=== PATIENT | male | born 1935 | race Caucasian/White ===

== ENCOUNTER 2016-09-01 | Outpatient (CLI) | payer MEDICARE | END 2016-09-01 18:46 | disposition EMS.NT ==

== ENCOUNTER 2016-09-02 | Outpatient (CLI) | payer MEDICARE | END 2016-09-02 07:40 | disposition EMS.NT ==

== ENCOUNTER 2016-10-14 16:52 | Outpatient (CLI) | payer MEDICARE | END 2016-10-14 16:53 | disposition home or self-care (01) | DX: R91.8 Other nonspecific abnormal finding of lung field (principal) ==

== ENCOUNTER 2016-10-28 10:14 | Outpatient (CLI) | payer MEDICARE ==
[2016-10-28] MEDS ORDERED: IOPAMIDOL-300 50 ML VIAL PO ONE (12:13)
[2016-10-28] MEDS ORDERED: IOPAMIDOL-300 100 ML VIAL IVP ONE (12:13)
== END 2016-10-28 10:15 | disposition home or self-care (01) ==
DX: J43.9 Emphysema, unspecified (principal); Z98.2 Presence of cerebrospinal fluid drainage device; R06.00 Dyspnea, unspecified; J20.9 Acute bronchitis, unspecified
CPT/HCPCS: 36415; 71260; 74177; 82565; Q9967

== ENCOUNTER 2019-02-20 05:39 | Outpatient (CLI) | payer MEDICARE | END 2019-02-20 05:40 | disposition critical access hospital (66) | LOC: EMS 05:39 | PROVIDERS: ATTEND Surgery | DX: R06.02 Shortness of breath (principal) | CPT/HCPCS: A0425; A0429 ==

== ENCOUNTER 2019-02-20 05:56 | Inpatient (IN) | payer MEDICARE ==
--- NOTE | 2019-02-20 06:04 | ED Physician Documentation ---
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 - Present Medications Home Medications: Ambulatory Orders Medication Instructions Recorded Confirmed Amlodipine Besylate 5 mg PO DAILY 11/27/15 01/22/16 Buspirone HCl 10 mg PO BID 11/27/15 01/22/16 Carbidopa/Levodopa [Carbidopa-Levo 3 mg ORAL Q4HR 11/27/15 01/22/16 25-100 mg Odt] Citalopram Hydrobromide 40 mg PO DAILY 11/27/15 01/22/16 [Citalopram HBr] Clopidogrel [Plavix] 75 mg PO ONCE 11/27/15 01/22/16 Formoterol Fumarate [Foradil] 12 mcg IH DAILY 11/27/15 01/21/16 Furosemide 20 mg PO DAILY 11/27/15 01/21/16 Lovastatin 20 mg PO DAILY 11/27/15 01/21/16 Metformin HCl 1,000 mg PO BID 11/27/15 01/22/16 Mometasone Furoate [Asmanex] 110 mcg IH DAILY 11/27/15 01/21/16 Oxybutynin [Ditropan] 5 mg PO DAILY 11/27/15 01/21/16 raNITIdine [Zantac] 150 mg ORAL DAILY 11/27/15 01/22/16 - Allergies Allergies/Adverse Reactions: Allergies Allergy/AdvReac Type Severity Reaction Status Date / Time No Known Drug Allergies Allergy Verified 01/21/16 14:57 Results - Vitals Vitals: Oxygen O2 Source Room air
[2019-02-20 06:15] LABS: BASOPHILS # (AUTO) 0.1 10^3/uL (0.0-0.1); BASOPHILS % (AUTO) 0.4 %; EOSINOPHILS # (AUTO) 0.2 10^3/uL (0.0-0.7); EOSINOPHILS % (AUTO) 1.5 %; HGB - HEMOGLOBIN 11.7 g/dL (14.0-18.0); LYMPHOCYTES # (AUTO) 0.7 10^3/uL (1.5-3.5); LYMPHOCYTES % (AUTO) 5.6 %; MEAN CORPUSCULAR HEMOGLOBIN 28.3 pg (27.0-31.0); MEAN CORPUSCULAR HGB CONC 31.8 g/dL (32.0-36.0); MEAN CORPUSCULAR VOLUME 89.1 fL (80.0-94.0); MEAN PLATELET VOLUME 9.4 fL (7.4-11.4); MONOCYTES # (AUTO) 0.9 10^3/uL (0.0-1.0); MONOCYTES % (AUTO) 6.9 %; NEUTROPHILS # (AUTO) 11.3 10^3/uL (1.5-6.6); NEUTROPHILS % (AUTO) 84.8 %; PLT - PLATELET COUNT 298 10^3/uL (130-450); RED BLOOD COUNT 4.13 10^6/uL (4.70-6.10); RED CELL DISTRIBUTION WIDTH 14.6 % (12.0-15.0); WHITE BLOOD COUNT 13.3 x10^3/uL (4.8-10.8)
--- NOTE | 2019-02-20 06:34 | XRAY Report ---
Reason: dyspnea Procedure Date: 02/20/2019 Accession Number: [id number] / [id number] Procedure: XR - Chest 1 View X-Ray CPT Code: 56419 FULL RESULT: EXAM: CHEST RADIOGRAPHY EXAM DATE: 02/20/2019 06:23 AM. CLINICAL HISTORY: Dyspnea. COMPARISON: CHEST 2 VIEW PA/LAT 10/14/2016 5:19 PM, ABDOMEN/PELVIS W/ 10/28/2016 12:01 PM. TECHNIQUE: 1 view. FINDINGS: Lungs/Pleura: Diffuse mild interstitial opacities. No large effusion. No gross pneumothorax. Mediastinum: Left atrial enlargement with overall upper normal heart size. No mediastinal shift. Other: Previous right shoulder replacement. 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 Mild chronic right hemidiaphragm elevation. IMPRESSION: Mild fluid overload/CHF. RADIA
[2019-02-20 06:38] LABS: ALBUMIN 3.7 g/dL (3.2-5.5); ALKALINE PHOSPHATASE 48 IU/L (42-121); ALT ALANINE AMINOTRANSFERASE < 10 IU/L (10-60); AST ASPARTATE AMINOTRANSFERASE 23 IU/L (10-42); BILIRUBIN,TOTAL 0.6 mg/dL (0.2-1.0); BUN - BLOOD UREA NITROGEN 25 mg/dL (6-20); CALCIUM 8.7 mg/dL (8.5-10.3); CARBON DIOXIDE - CO2 23 mmol/L (21-32); CHLORIDE 101 mmol/L (101-111); CREATININE 0.7 mg/dL (0.6-1.2); GFR - MDRD 108 (>89); GLUCOSE 192 mg/dL (70-100); LIPASE 25 U/L (22-51); SODIUM 137 mmol/L (135-145); TOTAL PROTEIN 7.4 g/dL (6.7-8.2)
[2019-02-20 06:49] LABS: INR 1.1 (0.8-1.2)
[2019-02-20] MEDS ORDERED: FUROSEMIDE 40 MG/4 ML VIAL IVP STA (06:54)
[2019-02-20 06:56] LABS: PARTIAL THROMBOPLASTIN TIME 26.7 secs (24.9-33.3)
[2019-02-20] MEDS ORDERED: IPRATROPIUM/ALBUTEROL 3 ML NEB INH STA (07:40)
--- NOTE | 2019-02-20 07:41 | ED Physician Documentation ---
PD HPI DYSPNEA - Stated complaint Stated Complaint: ASTHMA EXACERBATION - Chief complaint Chief Complaint: Resp - History obtained from History obtained from: Patient, Family, EMS - History of Present Illness Timing - onset: Today Timing - onset during: Rest Timing - duration: Hours Timing - details: Abrupt onset, Still present Inciting event(s): Other (awoke with shortness of breath) Improved by: O2, BiPAP / CPAP, Inhaler/neb Worsened by: Exertion, Laying flat Associated symptoms: Wheezing. No: Fever, Cough, Hemoptysis Similar symptoms before: Diagnosis (COPD) Recently seen: Not recently seen - Additional information Additional information: 83 y/o male with acute dyspnea on awakening is a poor historian on arrival. The arrives to note that he was sitting up on the edge of the bed to breath and having a difficult time. The medics administered duoneb and transported the patient with a POLST for comfort care only and no intubation. He arrived to the ED dyspneic and sounding wet with course rales anteriorly. He was placed on BIPAP and on my initial evaluation the patient is much improved from arrival. He has been given IV lasix as well. The notes that he was not ill prior to this incident. He does use his nebulizer 4 times per day on a regular basis. It has been about a year since he has had to be on a course of prednisone -- the thinks maybe --. 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, Parkinsonism, sleep apnea with CPAP use and Review of Systems Constitutional: denies: Fever Eyes: denies: Decreased vision Ears: denies: Ear pain Nose: denies: Rhinorrhea / runny nose, Congestion Throat: denies: Sore throat Cardiac: denies: Chest pain / pressure, Palpitations Respiratory: reports: Dyspnea GI: denies: Abdominal Pain, Nausea, Vomiting, Constipation, Diarrhea : denies: Dysuria, Frequency Skin: denies: Rash Musculoskeletal: denies: Neck pain, Back pain, Extremity pain Neurologic: denies: Generalized weakness, Focal weakness, Numbness PD PAST MEDICAL HISTORY - Past Medical History Past Medical History: Yes Cardiovascular: Hypertension, High cholesterol, Murmur, Arrhythmia, Other Respiratory: Asthma, Shortness of breath, Sleep apnea, CPAP use Endocrine/Autoimmune: Type 2 diabetes GI: GERD : Frequency HEENT: None Psych: Depression Musculoskeletal: Osteoarthritis, Other Derm: None - Past Surgical History Past Surgical History: Yes General: Other Ortho: Hip replacement, Shoulder arthroplasty Cardiovascular: Cardiac catheterization 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 - Present Medications Home Medications: Ambulatory Orders Medication Instructions Recorded Confirmed Amlodipine Besylate 5 mg PO DAILY 11/27/15 02/20/19 Buspirone HCl 10 mg PO BID 11/27/15 02/20/19 Carbidopa/Levodopa [Carbidopa-Levo 3 mg ORAL Q4HR 11/27/15 02/20/19 25-100 mg Odt] Citalopram Hydrobromide 40 mg PO DAILY 11/27/15 02/20/19 [Citalopram HBr] Clopidogrel [Plavix] 75 mg PO ONCE 11/27/15 02/20/19 Formoterol Fumarate [Foradil] 12 mcg IH DAILY 11/27/15 01/21/16 Furosemide 20 mg PO DAILY 11/27/15 02/20/19 Lovastatin 20 mg PO DAILY 11/27/15 01/21/16 Metformin HCl 1,000 mg PO BID 11/27/15 02/20/19 Mometasone Furoate [Asmanex] 110 mcg IH DAILY 11/27/15 01/21/16 Oxybutynin [Ditropan] 5 mg PO DAILY 11/27/15 01/21/16 raNITIdine [Zantac] 150 mg ORAL DAILY 11/27/15 02/20/19 - Allergies Allergies/Adverse Reactions: Allergies Allergy/AdvReac Type Severity Reaction Status Date / Time No Known Drug Allergies Allergy Verified 01/21/16 14:57 - Social History Does the pt smoke?: No Smoking Status: Never smoker Does the pt drink ETOH?: No Does the pt have substance abuse?: No PD ED PE NORMAL - Vitals Vital signs reviewed: Yes (tachy, tachypneic) - General General: Well developed/nourished, Other (wearing BIPAP and difficult to understand speaks in short sentences) - HEENT HEENT: Atraumatic, PERRL, EOMI - Neck Neck: Supple, no meningeal sign - Cardiac Cardiac: Other (tachycardic to 100 with 2/6 tight holosystolic murmer at LSB consistent with aortic stenosis. 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, No motor deficit, No sensory deficit, Normal speech Eye Opening: Spontaneous Motor: Obeys Commands Verbal: Oriented GCS Score: 15 - Psych Psych: Normal mood, Normal affect Results - Vitals Vitals: Vital Signs - 24 hr 02/20/19 02/20/19 02/20/19 06:02 06:07 06:24 Temperature Heart Rate 117 H 102 H Respiratory 40 H 36 H Rate Blood Pressure 127/72 109/86 H O2 Saturation 96 99 02/20/19 02/20/19 02/20/19 06:26 06:56 07:05 Temperature 36.6 C Heart Rate 53 L 107 H 99 Respiratory 31 H 26 H Rate Blood Pressure 116/74 110/68 O2 Saturation 99 100 02/20/19 02/20/19 02/20/19 07:45 09:12 09:40 Temperature Heart Rate 98 100 96 Respiratory 25 H 24 Rate Blood Pressure 107/75 O2 Saturation 99 02/20/19 10:00 Temperature Heart Rate 91 Respiratory 24 Rate Blood Pressure 117/94 H O2 Saturation 98 Oxygen O2 Source BIPAP Oxygen Flow Rate 2 - Labs Labs: Laboratory Tests 02/20/19 02/20/19 02/20/19 06:05 06:05 06:05 WBC 13.3 H RBC 4.13 L Hgb 11.7 L Hct 36.8 L MCV 89.1 MCH 28.3 MCHC 31.8 L RDW 14.6 Plt Count 298 MPV 9.4 Neut # (Auto) 11.3 H Lymph # (Auto) 0.7 L [place] # (Auto) 0.9 Eos # (Auto) 0.2 Baso # (Auto) 0.1 Absolute Nucleated RBC 0.00 Nucleated RBC % 0.0 PT 12.0 INR 1.1 APTT 26.7 Bld Gas Analysis Time Sample Site ABG pH ABG pCO2 ABG pO2 ABG HCO3 ABG Total CO2 ABG O2 Saturation ABG Base Excess Paul Test Respiration Rate O2 Delivery Device Vent Mode FiO2 Pressure Support Vent EPAP IPAP Sodium 137 Potassium 4.8 Chloride 101 Carbon Dioxide 23 Anion Gap 13.0 BUN 25 H Creatinine 0.7 Estimated GFR (MDRD) 108 Glucose 192 H Calcium 8.7 Total Bilirubin 0.6 AST 23 ALT < 10 L Alkaline Phosphatase 48 Troponin I B-Natriuretic Peptide Total Protein 7.4 Albumin 3.7 Globulin 3.7 Albumin/Globulin Ratio 1.0 Lipase 25 Urine Color Urine Clarity Urine pH Ur Specific [place] Urine Protein Urine Glucose (UA) Urine Ketones Urine Occult Blood Urine Nitrite Urine Bilirubin Urine Urobilinogen Ur Leukocyte Esterase Urine RBC Urine WBC Ur Squamous Epith Cells Amorphous Sediment Urine Bacteria Ur Microscopic Review Urine Culture Comments 02/20/19 02/20/19 02/20/19 06:05 06:05 06:05 WBC RBC Hgb Hct MCV MCH MCHC RDW Plt Count MPV Neut # (Auto) Lymph # (Auto) [place] # (Auto) Eos # (Auto) Baso # (Auto) Absolute Nucleated RBC Nucleated RBC % PT INR APTT Bld Gas Analysis Time Sample Site ABG pH ABG pCO2 ABG pO2 ABG HCO3 ABG Total CO2 ABG O2 Saturation ABG Base Excess Paul Test Respiration Rate O2 Delivery Device Vent Mode FiO2 Pressure Support Vent EPAP IPAP Sodium Potassium Chloride Carbon Dioxide Anion Gap BUN Creatinine Estimated GFR (MDRD) Glucose Calcium Total Bilirubin AST ALT Alkaline Phosphatase Troponin I 0.05 B-Natriuretic Peptide 784 H Total Protein Albumin Globulin Albumin/Globulin Ratio Lipase Urine Color YELLOW Urine Clarity HAZY Urine pH 6.0 Ur Specific [place] 1.010 Urine Protein NEGATIVE Urine Glucose (UA) NEGATIVE Urine Ketones NEGATIVE Urine Occult Blood NEGATIVE Urine Nitrite NEGATIVE Urine Bilirubin NEGATIVE Urine Urobilinogen 0.2 (NORMAL) Ur Leukocyte Esterase NEGATIVE Urine RBC 0-5 Urine WBC 0-3 Ur Squamous Epith Cells FEW Squamous Amorphous Sediment Few Urine Bacteria Few Ur Microscopic Review INDICATED Urine Culture Comments NOT INDICATED 02/20/19 02/20/19 09:07 10:35 WBC RBC Hgb Hct MCV MCH MCHC RDW Plt Count MPV Neut # (Auto) Lymph # (Auto) [place] # (Auto) Eos # (Auto) Baso # (Auto) Absolute Nucleated RBC Nucleated RBC % PT INR APTT Bld Gas Analysis Time 1035 Sample Site RIGHT RADIAL ABG pH 7.42 ABG pCO2 36 ABG pO2 141 H ABG HCO3 22.9 ABG Total CO2 24.0 ABG O2 Saturation 99 H ABG Base Excess -1.2 Paul Test POSITIVE Respiration Rate 16 O2 Delivery Device BiPAP Vent Mode 5 FiO2 40.00 Pressure Support Vent 6 EPAP 6 IPAP 12 Sodium Potassium Chloride Carbon Dioxide Anion Gap BUN Creatinine Estimated GFR (MDRD) Glucose Calcium Total Bilirubin AST ALT Alkaline Phosphatase Troponin I 0.15 B-Natriuretic Peptide Total Protein Albumin Globulin Albumin/Globulin Ratio Lipase Urine Color Urine Clarity Urine pH Ur Specific [place] Urine Protein Urine Glucose (UA) Urine Ketones Urine Occult Blood Urine Nitrite Urine Bilirubin Urine Urobilinogen Ur Leukocyte Esterase Urine RBC Urine WBC Ur Squamous Epith Cells Amorphous Sediment Urine Bacteria Ur Microscopic Review Urine Culture Comments - Rads (name of study) chest Radiology: Prelim report reviewed (Impression: Mild fluid overload/CHF.), EMP read indepedently, See rad report Procedures - IVC sono (time) 0730 Bedside IVC sono: IVC measures (cm) (1.97), IVC collapsed c insp (cm) (0.97), Euvolemia PD MEDICAL DECISION MAKING - ED course Complexity details: reviewed old records, reviewed results, re-evaluated patient, considered differential, d/w patient, d/w family ED course: 83-year-old male with a history of normal pressure hydrocephalus parkinsonism and COPD has arrived to the emergency department in acute respiratory distress with what appears to be flash pulmonary edema. He has remarkable improvement w ith use of BiPAP he is administered furosemide intravenously at the time of my initial examination the patient appears to have improved his failure. His lung exam sounds like tight wheezes from COPD and his IVC is now collapsing. The patient is administered a second treatment in the form of a DuoNeb here with further improvement and he is taken off of the BiPAP and does well. Departure - Departure Disposition: [facility] DC/Xfer Clinical Impression: Moderate COPD (chronic obstructive pulmonary disease) Congestive heart failure Qualifiers: Heart failure type: unspecified Heart failure chronicity: acute Qualified Code(s): I50.9 - Heart failure, unspecified Condition: Serious
[2019-02-20] MEDS ORDERED: methylPREDNISolone SUCCINATE 125 MG/2 ML VIAL IVP STA (08:29)
[2019-02-20 09:51] LABS: BILIRUBIN,URINE NEGATIVE (NEGATIVE); GLUCOSE, URINE (UA) NEGATIVE (NEGATIVE); KETONES,URINE (UA) NEGATIVE (NEGATIVE); LEUKOCYTE ESTERASE, URINE NEGATIVE (NEGATIVE); NITRITE,URINE NEGATIVE (NEGATIVE); OCCULT BLOOD,URINE NEGATIVE (NEGATIVE); PROTEIN,URINE NEGATIVE (NEGATIVE); UROBILINOGEN,URINE 0.2 (NORMAL) E.U./dL (NORMAL)
[2019-02-20 10:09] LABS: CLARITY,URINE HAZY (CLEAR)
[2019-02-20 10:10] LABS: AMORPHOUS SEDIMENT,UR Few /LPF; BACTERIA,URINE Few /HPF (None Seen); RBC,URINE 0-5 /HPF (0-5); SQUAMOUS EPITHELIAL CELL,UR FEW Squamous (<= Few)
[2019-02-20 10:42] LABS: ABG BASE EXCESS -1.2 mmol/L (-2.0-3.0); ABG HCO3 22.9 mmol/L (22.0-26.0); ABG PCO2 36 mmHg (34-45); ABG PH 7.42 (7.35-7.45); ABG PO2 141 mmHg (80-100)
[2019-02-20 10:43] LABS: ABG OXYGEN SATURATION 99 % (94-98); ALLEN TEST POSITIVE
[2019-02-20] MEDS ORDERED: PROCHLORPERAZINE 10 MG/2 ML VIAL IVP PRN (11:35)
[2019-02-20] MEDS ORDERED: ACETAMINOPHEN 325 MG TABLET PO PRN (11:35)
[2019-02-20] MEDS ORDERED: IPRATROPIUM/ALBUTEROL 3 ML NEB INH PRN (11:44)
[2019-02-20] MEDS ORDERED: CLOPIDOGREL 75 MG TABLET PO SCH (12:00)
[2019-02-20] MEDS ORDERED: ENOXAPARIN 40 MG/0.4 ML SYRINGE SUBQ SCH (12:00)
[2019-02-20] MEDS ORDERED: CARBIDOPA ORAL SCH (13:00)
[2019-02-20] MEDS ORDERED: LEVODOPA ORAL SCH (13:00)
[2019-02-20] MEDS: IPRATROPIUM/ALBUTEROL 3 ML NEB INH SCH ×2 (13:30→18:15)
[2019-02-20 13:53] LABS: HB2 TOTAL 12.4 g/dL; HEMOGLOBIN A1C 0.57 g/dL; HEMOGLOBIN A1C % 6.4 % (4.6-6.2)
[2019-02-20] MEDS ORDERED: ONDANSETRON 4 MG/2 ML VIAL IVP PRN (13:54)
[2019-02-20] MEDS: FUROSEMIDE 40 MG/4 ML VIAL IVP SCH (14:05)
[2019-02-20] MEDS: INSULIN ASPART 300 UNIT/3 ML PEN SUBQ SCH ×3 (14:05→20:46)
[2019-02-20] MEDS: SODIUM CHLORIDE FLUSH 0.9% 10 ML SYRINGE IVP PRN ×4 (14:05→20:37)
[2019-02-20] MEDS: methylPREDNISolone SUCCINATE 40 MG/ML VIAL IVP SCH ×2 (14:05→20:37)
[2019-02-20] MEDS ORDERED: diltiaZEM INJ 5 MG/ML VIAL IVP ONE (14:11)
[2019-02-20] MEDS: MORPHINE 2 MG/ML CARPUJECT IVP PRN (14:15)
[2019-02-20] MEDS: SODIUM CHLORIDE FLUSH 0.9% 10 ML SYRINGE IVP SCH (17:07)
--- NOTE | 2019-02-20 19:59 | HISTORY & PHYSICAL EXAMINATION ---
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 The patient presents with rapid onset of shortness of breath, which started overnight last night, was so severe that he was sitting bolt upright to breathe and his called an ambulance. He received a nebulizer en route. In the emergency room, he was evaluated and felt to have rales and also given a nebulizer as well as IV diuretics. He also needed BiPAP while housed in the ER. He was there for several hours, since there was no ICU bed, and his respiratory status improved after some diuresis, the wheezing also improved and he was able to come off of BiPAP. This has never happened to him before. The patient has a limited-treatment POLST as well as DO NOT INTUBATE request in the chart. The patient denied any chest pain, orthopnea or any leg edema, and he states he has been compliant with his medications. He does not know why he is on Plavix, but the thinks that it is because of prior TIAs or strokes, since it was changed from a different medicine, probably Aggrenox, about 5-10 years ago. She does not know why he is not on aspirin daily, since he probably has a history of coronary stenting. The also provided a contact to their daughter, Mi Pompa, who is a Hospice ERP DEVELOPER in [place], [place]: . ALLERGIES: NONE. MEDICATIONS 1. Formoterol inhaler daily. 2. Asmanex inhaler daily. 3. Zantac 150 daily. 4. Amlodipine 5 mg daily. 5. Lasix 20 mg daily. 6. Metformin 1000 mg b.i.d. 7. Buspirone 10 mg b.i.d. 8. Carbidopa/levodopa 3 tablets in the morning, 1 after lunch and 1 in the evening. 9. Citalopram 40 mg daily. 10. Plavix 75 mg daily. FAMILY HISTORY: No inherited diseases. SOCIAL HISTORY: The patient lives with his . He also goes to the [facility] for his care. The patient is a nonsmoker, drinks no alcohol, no illicit drug use. REVIEW OF SYSTEMS: The patient's chart indicates that he has some memory problems after the strokes. A comprehensive review of systems was performed and the pertinent positives are listed, the rest are negative. PHYSICAL EXAMINATION GENERAL APPEARANCE: Elderly white male. He is in [id number] respiratory distress with increased respiratory rate and audible wheezing across the room. VITAL SIGNS: Blood pressure 100/63, pulse 108 in sinus tachycardia, afebrile. Room air saturation was not available, as he was already on 2 liters nasal cannula from the ambulance, with 94% oxygen -saturation. HEENT: Reveals moist oral mucosa. Good dentition. NECK: Without JVD in a vertical body position. CHEST: Increased AP diameter, scattered wheezes, bibasilar rales. HEART: Tachycardic, soft S1 and S2, 2/6 systolic murmur at the base and lower left sternal border. No obvious gallop, but he is tachycardic. ABDOMEN: Soft, obese, with normal bowel sounds, nontender. EXTREMITIES: No edema. NEUROLOGIC: Grossly intact, but poor memory. Flat affect, no tremors. LABORATORY DATA: BNP 784. Troponin 0.05 then 0.15. Normal electrolytes. BUN is 25, creatinine 0.7, glucose 192. A1c 6.4. Normal liver tests and lipase. White blood count 13.3, hemoglobin 11.7, with MCV of 89, platelet count normal at 298. Blood gas done in the ER had pH 7.42, pCO2 of 36, pO2 141. Urinalysis unremarkable. CHEST X-RAY: Mild vascular congestion. EKG: Sinus tachycardia, LBBB. The LBBB is new since his last EKG done here several years ago. IMPRESSION/DIAGNOSES 1. Chronic obstructive pulmonary disease exacerbation. 2. Flash pulmonary edema. 3. New left bundle branch block. 4. Elevated troponin, probable AR from demand ischemia. 5. Sleep apnea, on CPAP. 6. Diabetes type 2. 7. History of Parkinson's disease. 8. History of normal pressure hydrocephalus with a cerebral shunt. 9. History of stroke with memory problems. 10. Possible history of coronary artery disease and a stent. 11. Heart murmur. PLAN 1. Admit the patient to a telemetry bed. 2. The patient would agree to BiPAP ise again if needed, then he would need to be transferred to the ICU. 3. Continue with IV diuresis b.i.d., follow daily weight, I's and O's, electrolytes and magnesium. Follow his BNP. 4. Hold the Amlodipine, since this may need to be changed to Cardizem or B- blockers because of the tachycardia. 5. Obtain troponins x3. The overall impression is that of demand ischemia with the elevation of troponins, new LBBB plus flash pulmonary edema with elevation of BNP, but overall the plan is for medical management since he wants limited and comfort treatment. Therefore, no transfer for coronary angiogram is planned. Continue the Plavix, consider daily aspirin use, unless a contra-indication for it's use exists, and start Lovenox 1 mg/kg anticoagulation for 24-48 hours then decrease to a DVT prophylaxis dose. Check a fasting lipid panel and treat. 6. Obtain an Echo to evaluate LV contractility and his murmur. 7. Continue nebulizers and iv steroids. 8. Continue with his diabetic management with a carbohydrate-controlled diet, sliding scale insulin coverage, but hold metformin for now in case there is need for imaging using iodine agents. 9. Continue with his Parkinsons meds. 10. Use the home CPAP device while here. CODE STATUS: DNR. DEEP VENOUS THROMBOSIS PROPHYLAXIS: From physical therapy. ATTESTATION: The patient is expected to be discharged and transferred to another facility Within 96 hours: Yes. cc: Natanael Tirado MD TD: 02/20/2019 19:21 MTDD
[2019-02-20] MEDS: ENOXAPARIN 100 MG/ML SYRINGE SUBQ SCH (20:36)
[2019-02-20] MEDS: busPIRone 5 MG TABLET PO SCH (20:36)
[2019-02-20] MEDS: FAMOTIDINE 20 MG TABLET PO SCH (20:37)
[2019-02-20] MEDS: CARBIDOPA/LEVODOPA 25 MG/100 MG TABLET PO SCH (20:37)
[2019-02-20] MEDS: ATORVASTATIN 10 MG TABLET PO SCH (20:38)
[2019-02-20] MEDS: FORMOTEROL FUMARATE NEB 20 MCG/2 ML INH SCH (21:08)
[2019-02-21] MEDS: SODIUM CHLORIDE FLUSH 0.9% 10 ML SYRINGE IVP SCH ×4 (00:03→23:37)
[2019-02-21] MEDS: SODIUM CHLORIDE FLUSH 0.9% 10 ML SYRINGE IVP PRN ×2 (05:34→05:50)
[2019-02-21] MEDS: methylPREDNISolone SUCCINATE 40 MG/ML VIAL IVP SCH ×3 (05:34→20:27)
[2019-02-21] MEDS: FUROSEMIDE 40 MG/4 ML VIAL IVP SCH ×2 (05:34→13:29)
[2019-02-21 05:54] LABS: HGB - HEMOGLOBIN 10.1 g/dL (14.0-18.0); LYMPHOCYTES # (AUTO) 0.5 10^3/uL (1.5-3.5); LYMPHOCYTES % (AUTO) 9.2 %; MEAN CORPUSCULAR HEMOGLOBIN 27.8 pg (27.0-31.0); MEAN CORPUSCULAR HGB CONC 31.7 g/dL (32.0-36.0); MEAN CORPUSCULAR VOLUME 87.9 fL (80.0-94.0); MEAN PLATELET VOLUME 9.7 fL (7.4-11.4); MONOCYTES # (AUTO) 0.3 10^3/uL (0.0-1.0); NEUTROPHILS # (AUTO) 4.8 10^3/uL (1.5-6.6); NEUTROPHILS % (AUTO) 85.3 %; PLT - PLATELET COUNT 267 10^3/uL (130-450); RED BLOOD COUNT 3.63 10^6/uL (4.70-6.10); RED CELL DISTRIBUTION WIDTH 14.6 % (12.0-15.0); WHITE BLOOD COUNT 5.6 x10^3/uL (4.8-10.8)
[2019-02-21 05:55] LABS: CALCIUM 8.6 mg/dL (8.5-10.3); MAGNESIUM 2.2 mg/dL (1.7-2.8)
[2019-02-21] MEDS: OXYBUTYNIN 5MG TABLET PO SCH (09:11)
[2019-02-21] MEDS: CARBIDOPA/LEVODOPA 25 MG/100 MG TABLET PO SCH ×3 (09:11→20:27)
[2019-02-21] MEDS: busPIRone 5 MG TABLET PO SCH ×2 (09:11→20:27)
[2019-02-21] MEDS: SPIRONOLACTONE 25 MG TABLET PO SCH (09:11)
[2019-02-21] MEDS: CITALOPRAM HYDROBROMIDE 20 MG TABLET PO SCH (09:11)
[2019-02-21] MEDS: ENOXAPARIN 100 MG/ML SYRINGE SUBQ SCH (09:12)
[2019-02-21] MEDS: FAMOTIDINE 20 MG TABLET PO SCH ×2 (09:12→20:27)
[2019-02-21] MEDS: POLYETHYLENE GLYCOL 3350 17 GM PACKET PO SCH (09:12)
[2019-02-21] MEDS: CLOPIDOGREL 75 MG TABLET PO SCH (09:12)
[2019-02-21] MEDS: METOPROLOL SUCCINATE 25 MG TABLET PO SCH ×2 (09:12→20:27)
[2019-02-21] MEDS: FORMOTEROL FUMARATE NEB 20 MCG/2 ML INH SCH ×2 (09:15→22:09)
[2019-02-21] MEDS: IPRATROPIUM/ALBUTEROL 3 ML NEB INH SCH ×4 (09:15→21:52)
[2019-02-21] MEDS: INSULIN ASPART 300 UNIT/3 ML PEN SUBQ SCH ×4 (09:19→20:33)
--- NOTE | 2019-02-21 18:14 | PROVIDER PROGRESS NOTE ---
Assessment/Plan - Problem List (1) Flash pulmonary edema Assessment/Plan: He is diuresing well, head of bed is able to decrease slightly. Continue with IV diuretics today, tomorrow we will transition to p.o. diuretics and add p.o. Spironolactone. Follow I's and O's and daily weights. (2) Acute MA Assessment/Plan: The new LBBB and more than doubling of the first troponin are consistent with an acute MA. The troponin peaked at 0.18, suggesting a small MA. The echo did show a depressed LVEF of 40%. Medical management as planned: 48 hours of Lovenox anticoagulation, beta- blockers and aspirin. Check lipid status. No transfer for angiography. He is also not a candidate for defibrillator. (3) Acute systolic CHF (congestive heart failure), NYHA class 3 Assessment/Plan: The LVEF of 40% was seen on echo. Continue with the beta-blockers as planned for the MA, cannot use MIKE inhibitors, arms or hydralazine with nitrates because of his fixed afterload from the severe aortic stenosis. Will continue with loop diuretic and start spironolactone (4) Aortic stenosis, severe Assessment/Plan: Patient's wishes were for limited intervention therefore he is not a candidate for open heart surgery or TAVR (5) COPD exacerbation Assessment/Plan: Continue with nebs, steroids, supplemental oxygen. Will request PT evaluation today He will also need an RT exercise walk test to assess if he needs oxygen at the time of discharge. (6) DM type 2 (diabetes mellitus, type 2) Assessment/Plan: He has very good glucose control with A1c of less than 6. Continue with carb controlled diet, fingerstick checks and sliding scale insulin (7) History of CVA with residual deficit Assessment/Plan: Apparently he has had 2 strokes and has a poor memory. Continue with aspirin treatment, check lipids (8) Anemia Assessment/Plan: This is adding to his shortness of breath symptoms. We will check B12, folate, iron panel. (9) AMBERLY on CPAP Assessment/Plan: He is using his home CPAP device while here. (10) Hx of essential hypertension Assessment/Plan: Amlodipine was stopped to make room for a beta-denisa. The Amlodipine is also not preferable when there is fixed afterload from aortic stenosis. He has are told there will be a change of medications after this admission - Current Meds Current Meds: Current Medications Generic Name Dose Route Start Last Admin Trade Name Freq PRN Reason Stop Dose Admin Albuterol/Ipratropium 3 ml 02/20/19 11:44 02/20/19 21:08 Duoneb INH 3 ml Q4HR PRN Administration Wheezing Albuterol/Ipratropium 3 ml 02/20/19 15:00 02/21/19 18:00 Duoneb INH 3 ml RTQID CARLOS Administration Atorvastatin Calcium 10 mg 02/20/19 21:00 02/20/19 20:38 Lipitor PO 10 mg QPM CARLOS Administration Buspirone HCl 10 mg 02/20/19 21:00 02/21/19 09:11 Buspar PO 10 mg BID CARLOS Administration Carbidopa/Levodopa 1 tab 02/20/19 20:00 02/20/19 20:37 Sinemet 25 Mg/100 Mg PO 1 tab 2000 CARLOS Administration Carbidopa/Levodopa 3 tab 02/21/19 09:00 02/21/19 09:11 Sinemet 25 Mg/100 Mg PO 3 tab DAILY CARLOS Administration Carbidopa/Levodopa 1 tab 02/21/19 16:00 02/21/19 15:55 Sinemet 25 Mg/100 Mg PO 1 tab 1600 CARLOS Administration Citalopram Hydrobromide 40 mg 02/21/19 09:00 02/21/19 09:11 Celexa PO 40 mg DAILY CARLOS Administration Clopidogrel Bisulfate 75 mg 02/21/19 09:00 02/21/19 09:12 Plavix PO 75 mg DAILY CARLOS Administration Famotidine 20 mg 02/20/19 21:00 02/21/19 09:12 Pepcid PO 20 mg BID CARLOS Administration Formoterol Fumarate 20 mcg 02/20/19 19:00 02/21/19 09:15 Perforomist INH 20 mcg RTBID CARLOS Administration Furosemide 40 mg 02/20/19 14:00 02/21/19 13:29 Lasix Inj 40 Mg Vial IVP 40 mg BIDDIURETIC CARLOS Administration Insulin Aspart 1 - 9 unit 02/21/19 08:00 02/21/19 17:08 Novolog SUBQ 1 unit 0800,1200,1700,2100 CARLOS Administration Protocol Methylprednisolone 40 mg 02/20/19 13:00 02/21/19 13:29 Solu-Medrol (40mg Vial) IVP 40 mg Q8H CARLOS Administration Metoprolol Succinate 25 mg 02/21/19 09:00 02/21/19 09:12 Toprol Xl PO 25 mg BID CARLOS Administration Morphine Sulfate 2 mg 02/20/19 11:35 02/20/19 14:15 Morphine (Carpuject) IVP 2 mg Q4HR PRN Administration Dyspnea Oxybutynin Chloride 5 mg 02/21/19 09:00 02/21/19 09:11 Ditropan PO 5 mg DAILY CARLOS Administration Polyethylene Glycol 17 gm 02/21/19 09:00 02/21/19 09:12 Miralax PO 17 gm DAILY CARLOS Administration Sodium Chloride 10 ml 02/20/19 11:35 02/21/19 05:50 Normal Saline Flush 0.9% IVP 10 ml PRN PRN Administration NEEDED PER PROVIDER ORDERS Sodium Chloride 10 ml 02/20/19 17:00 02/21/19 15:55 Normal Saline Flush 0.9% IVP 10 ml 0100,0900,1700 CARLOS Administration Spironolactone 25 mg 02/21/19 09:00 02/21/19 09:11 Aldactone PO 25 mg DAILY CARLOS Administration - Lab Result Fish Bone Diagrams: 02/21/19 05:27 02/21/19 05:27 - Additional Planning My Orders: My Active Orders 02/20/19 19:00 Formoterol Fumarate [Perforomist] 20 mcg INH RTBID 02/20/19 20:00 Carbidopa/Levodopa 25/100 [Sinemet 25 mg/100 mg] 1 tab PO 199902/20/19 21:00 Atorvastatin [Lipitor] 10 mg PO QPM Famotidine [Pepcid] 20 mg PO BID busPIRone [Buspar] 10 mg PO BID 02/21/19 Evaluate and Treat PT [PT] Routine 02/21/19 08:00 Insulin Aspart [NovoLOG] 1 - 9 unit SUBQ 0800,1200,1700,2100 02/21/19 09:00 Carbidopa/Levodopa 25/100 [Sinemet 25 mg/100 mg] 3 tab PO DAILY Citalopram Hydrobromide [Celexa] 40 mg PO DAILY Clopidogrel [Plavix] 75 mg PO DAILY Metoprolol Succinate [Toprol Xl] 25 mg PO BID Oxybutynin [Ditropan] 5 mg PO DAILY Polyethylene Glycol 3350 [Miralax] 17 gm PO DAILY Spironolactone [Aldactone] 25 mg PO DAILY 02/21/19 16:00 Carbidopa/Levodopa 25/100 [Sinemet 25 mg/100 mg] 1 tab PO 1600 02/22/19 05:00 BMP - BASIC METABOLIC PANEL [CHEM] DAILYLAB BNP - B-NATRIURETIC PEPTIDE [IAI] DAILYLAB CBC - COMP BLD CT W/AUTO DIFF [HEME] DAILYLAB MAGNESIUM [CHEM] DAILYLAB 02/23/19 05:00 BMP - BASIC METABOLIC PANEL [CHEM] DAILYLAB MAGNESIUM [CHEM] DAILYLAB 02/24/19 05:00 BMP - BASIC METABOLIC PANEL [CHEM] DAILYLAB MAGNESIUM [CHEM] DAILYLAB Subjective - Subjective Patient Reports: Feeling Better, Resting Comfortably Objective Vital Signs: Vital Signs - 24 hr 02/20/19 02/20/19 02/20/19 18:15 20:00 21:09 Temperature 36.9 C Heart Rate 100 95 Heart Rate [ Activity] Heart Rate [ Brachial] Heart Rate [ 94 Radial] Heart Rate [ Supine] Respiratory 20 18 Rate Blood Pressure [Activity] Blood Pressure 106/58 L [Left Brachial artery] Blood Pressure [Right Brachial artery] Blood Pressure [Supine] O2 Saturation 94 02/20/19 02/21/19 02/21/19 23:20 05:15 08:48 Temperature 37.1 C 36.6 C 36.5 C Heart Rate Heart Rate [ Activity] Heart Rate [ Brachial] Heart Rate [ 84 71 99 Radial] Heart Rate [ Supine] Respiratory 20 20 20 Rate Blood Pressure [Activity] Blood Pressure 107/71 [Left Brachial artery] Blood Pressure 106/76 134/75 H [Right Brachial artery] Blood Pressure [Supine] O2 Saturation 93 94 96 02/21/19 02/21/19 02/21/19 09:15 12:57 14:30 Temperature 36.2 C L Heart Rate 76 85 Heart Rate [ Activity] Heart Rate [ Brachial] Heart Rate [ 96 Radial] Heart Rate [ Supine] Respiratory 24 18 24 Rate Blood Pressure [Activity] Blood Pressure [Left Brachial artery] Blood Pressure 112/62 [Right Brachial artery] Blood Pressure [Supine] O2 Saturation 96 02/21/19 02/21/19 14:45 15:51 Temperature 36.8 C Heart Rate Heart Rate [ 98 Activity] Heart Rate [ 96 Brachial] Heart Rate [ Radial] Heart Rate [ 85 Supine] Respiratory 20 Rate Blood Pressure 118/58 L [Activity] Blood Pressure [Left Brachial artery] Blood Pressure 115/71 [Right Brachial artery] Blood Pressure 108/61 [Supine] O2 Saturation 93 Oxygen O2 Source Nasal cannula Oxygen Flow Rate 2 I&O (Last 24 Hrs): Intake and Output Totals x24h 02/19/19 02/20/19 02/21/19 23:59 23:59 23:59 Intake Total 960 466 Output Total 250 475 Balance 710 -9 General: Alert HEENT: Mucous membr. moist/pink Neck: Supple Neuro: Non Focal, Other (Poor memory) Cardiovascular: Regular rate Respiratory: No respiratory distress Abdomen: Soft Extremities: No edema - Results Results: Laboratory Results WBC 5.6 x10^3/uL (4.8-10.8) 02/21/19 05:27 RBC 3.63 10^6/uL (4.70-6.10) L 02/21/19 05:27 Hgb 10.1 g/dL (14.0-18.0) L 02/21/19 05:27 Hct 31.9 % (42.0-52.0) L 02/21/19 05:27 MCV 87.9 fL (80.0-94.0) 02/21/19 05:27 MCH 27.8 pg (27.0-31.0) 02/21/19 05:27 MCHC 31.7 g/dL (32.0-36.0) L 02/21/19 05:27 RDW 14.6 % (12.0-15.0) 02/21/19 05:27 Plt Count 267 10^3/uL (130-450) 02/21/19 05:27 MPV 9.7 fL (7.4-11.4) 02/21/19 05:27 Neut # (Auto) 4.8 10^3/uL (1.5-6.6) 02/21/19 05:27 Lymph # (Auto) 0.5 10^3/uL (1.5-3.5) L 02/21/19 05:27 [place] # (Auto) 0.3 10^3/uL (0.0-1.0) 02/21/19 05:27 Eos # (Auto) 0.0 10^3/uL (0.0-0.7) 02/21/19 05:27 Baso # (Auto) 0.0 10^3/uL (0.0-0.1) 02/21/19 05:27 Absolute Nucleated RBC 0.00 x10^3/uL 02/21/19 05:27 Nucleated RBC % 0.0 /100WBC 02/21/19 05:27 PT 12.0 secs (9.9-12.6) 02/20/19 06:05 INR 1.1 (0.8-1.2) 02/20/19 06:05 APTT 26.7 secs (24.9-33.3) 02/20/19 06:05 Bld Gas Analysis Time 1035 02/20/19 10:35 Sample Site RIGHT RADIAL 02/20/19 10:35 ABG pH 7.42 (7.35-7.45) 02/20/19 10:35 ABG pCO2 36 mmHg (34-45) 02/20/19 10:35 ABG pO2 141 mmHg (80-100) H 02/20/19 10:35 ABG HCO3 22.9 mmol/L (22.0-26.0) 02/20/19 10:35 ABG Total CO2 24.0 MMOL/L (21.0-29.0) 02/20/19 10:35 ABG O2 Saturation 99 % (94-98) H 02/20/19 10:35 ABG Base Excess -1.2 mmol/L (-2.0-3.0) 02/20/19 10:35 Paul Test POSITIVE 02/20/19 10:35 Respiration Rate 16 b/min 02/20/19 10:35 O2 Delivery Device BiPAP 02/20/19 10:35 Vent Mode 5 02/20/19 10:35 FiO2 40.00 02/20/19 10:35 Pressure Support Vent 6 cmH2O 02/20/19 10:35 EPAP 6 cmH2O 02/20/19 10:35 IPAP 12 cmH2O 02/20/19 10:35 Sodium 138 mmol/L (135-145) 02/21/19 05:27 Potassium 4.1 mmol/L (3.5-5.0) 02/21/19 05:27 Chloride 102 mmol/L (101-111) 02/21/19 05:27 Carbon Dioxide 24 mmol/L (21-32) 02/21/19 05:27 Anion Gap 12.0 (6-13) 02/21/19 05:27 BUN 42 mg/dL (6-20) H 02/21/19 05:27 Creatinine 1.0 mg/dL (0.6-1.2) 02/21/19 05:27 Estimated GFR (MDRD) 72 (>89) L 02/21/19 05:27 Glucose 158 mg/dL (70-100) H 02/21/19 05:27 Glycated Hemoglobin 6.4 % (4.6-6.2) H 02/20/19 13:00 Estim Average Glucose 137 (70-100) H 02/20/19 13:00 Calcium 8.6 mg/dL (8.5-10.3) 02/21/19 05:27 Magnesium 2.2 mg/dL (1.7-2.8) 02/21/19 05:27 Total Bilirubin 0.6 mg/dL (0.2-1.0) 02/20/19 06:05 AST 23 IU/L (10-42) 02/20/19 06:05 ALT < 10 IU/L (10-60) L 02/20/19 06:05 Alkaline Phosphatase 48 IU/L (42-121) 02/20/19 06:05 Troponin I 0.18 ng/mL (<0.49) 02/20/19 21:17 B-Natriuretic Peptide 1388 pg/mL (5-100) H 02/21/19 05:27 Total Protein 7.4 g/dL (6.7-8.2) 02/20/19 06:05 Albumin 3.7 g/dL (3.2-5.5) 02/20/19 06:05 Globulin 3.7 g/dL (2.1-4.2) 02/20/19 06:05 Albumin/Globulin Ratio 1.0 (1.0-2.2) 02/20/19 06:05 Lipase 25 U/L (22-51) 02/20/19 06:05 Urine Color YELLOW 02/20/19 06:05 Urine Clarity HAZY (CLEAR) 02/20/19 06:05 Urine pH 6.0 PH (5.0-7.5) 02/20/19 06:05 Ur Specific [place] 1.010 (1.002-1.030) 02/20/19 06:05 Urine Protein NEGATIVE mg/dL (NEGATIVE) 02/20/19 06:05 Urine Glucose (UA) NEGATIVE mg/dL (NEGATIVE) 02/20/19 06:05 Urine Ketones NEGATIVE mg/dL (NEGATIVE) 02/20/19 06:05 Urine Occult Blood NEGATIVE (NEGATIVE) 02/20/19 06:05 Urine Nitrite NEGATIVE (NEGATIVE) 02/20/19 06:05 Urine Bilirubin NEGATIVE (NEGATIVE) 02/20/19 06:05 Urine Urobilinogen 0.2 (NORMAL) E.U./dL (NORMAL) 02/20/19 06:05 Ur Leukocyte Esterase NEGATIVE (NEGATIVE) 02/20/19 06:05 Urine RBC 0-5 /HPF (0-5) 02/20/19 06:05 Urine WBC 0-3 /HPF (0-3) 02/20/19 06:05 Ur Squamous Epith Cells FEW Squamous (<= Few) 02/20/19 06:05 Amorphous Sediment Few /LPF 02/20/19 06:05 Urine Bacteria Few /HPF (None Seen) 02/20/19 06:05 Ur Microscopic Review INDICATED 02/20/19 06:05 Urine Culture Comments NOT INDICATED 02/20/19 06:05 - Procedures Procedures: Procedures REPLACEMENT OF LEFT LENS WITH SYNTH SUB, PERC APPROACH (01/22/16) REPLACEMENT OF RIGHT LENS WITH SYNTH SUB, PERC APPROACH (11/27/15)
[2019-02-21] MEDS: MORPHINE 2 MG/ML CARPUJECT IVP PRN (18:53)
[2019-02-21] MEDS: ATORVASTATIN 10 MG TABLET PO SCH (20:27)
[2019-02-21] MEDS ORDERED: ENOXAPARIN 100 MG/ML SYRINGE SUBQ SCH (21:00)
[2019-02-22] MEDS: methylPREDNISolone SUCCINATE 40 MG/ML VIAL IVP SCH (05:30)
[2019-02-22] MEDS: SODIUM CHLORIDE FLUSH 0.9% 10 ML SYRINGE IVP PRN (05:33)
[2019-02-22 05:45] LABS: BASOPHILS % (AUTO) 0.1 %; HGB - HEMOGLOBIN 11.1 g/dL (14.0-18.0); LYMPHOCYTES # (AUTO) 0.6 10^3/uL (1.5-3.5); LYMPHOCYTES % (AUTO) 6.6 %; MEAN CORPUSCULAR HEMOGLOBIN 28.7 pg (27.0-31.0); MEAN CORPUSCULAR HGB CONC 32.3 g/dL (32.0-36.0); MEAN CORPUSCULAR VOLUME 88.9 fL (80.0-94.0); MEAN PLATELET VOLUME 9.8 fL (7.4-11.4); MONOCYTES # (AUTO) 0.5 10^3/uL (0.0-1.0); MONOCYTES % (AUTO) 5.8 %; NEUTROPHILS # (AUTO) 7.4 10^3/uL (1.5-6.6); NEUTROPHILS % (AUTO) 86.8 %; PLT - PLATELET COUNT 309 10^3/uL (130-450); RED BLOOD COUNT 3.87 10^6/uL (4.70-6.10); RED CELL DISTRIBUTION WIDTH 14.6 % (12.0-15.0); WHITE BLOOD COUNT 8.5 x10^3/uL (4.8-10.8)
[2019-02-22 06:04] LABS: CALCIUM 8.9 mg/dL (8.5-10.3); CREATININE 1.1 mg/dL (0.6-1.2); MAGNESIUM 2.7 mg/dL (1.7-2.8)
[2019-02-22] MEDS: FUROSEMIDE 40 MG/4 ML VIAL IVP SCH (06:09)
[2019-02-22] MEDS: IPRATROPIUM/ALBUTEROL 3 ML NEB INH SCH ×4 (07:25→17:52)
[2019-02-22] MEDS: FORMOTEROL FUMARATE NEB 20 MCG/2 ML INH SCH ×2 (07:25→17:52)
[2019-02-22 09:30] LABS: % IRON SATURATION 7 % (20-50); IRON 24 ug/dL (45-182); TOTAL IRON BINDING CAPACITY 351 ug/dL (250-450); TRANSFERRIN 251 mg/dL (180-329)
[2019-02-22 09:50] LABS: FOLATE 23.82 ng/mL (5.90 - >24.8)
[2019-02-22] MEDS: INSULIN ASPART 300 UNIT/3 ML PEN SUBQ SCH ×4 (09:53→22:25)
[2019-02-22] MEDS: ENOXAPARIN 40 MG/0.4 ML SYRINGE SUBQ SCH (10:28)
[2019-02-22] MEDS: CITALOPRAM HYDROBROMIDE 20 MG TABLET PO SCH (10:30)
[2019-02-22] MEDS: ASPIRIN EC 81 MG TABLET PO SCH (10:30)
[2019-02-22] MEDS: FAMOTIDINE 20 MG TABLET PO SCH ×2 (10:30→20:42)
[2019-02-22] MEDS: OXYBUTYNIN 5MG TABLET PO SCH (10:30)
[2019-02-22] MEDS: busPIRone 5 MG TABLET PO SCH ×2 (10:30→20:42)
[2019-02-22] MEDS: SPIRONOLACTONE 25 MG TABLET PO SCH (10:30)
[2019-02-22] MEDS: CARBIDOPA/LEVODOPA 25 MG/100 MG TABLET PO SCH ×3 (10:30→20:42)
[2019-02-22] MEDS: METOPROLOL SUCCINATE 25 MG TABLET PO SCH ×2 (10:30→20:42)
[2019-02-22] MEDS: POLYETHYLENE GLYCOL 3350 17 GM PACKET PO SCH (10:31)
[2019-02-22] MEDS: CLOPIDOGREL 75 MG TABLET PO SCH (10:31)
[2019-02-22] MEDS: SODIUM CHLORIDE FLUSH 0.9% 10 ML SYRINGE IVP SCH ×2 (10:31→16:34)
--- NOTE | 2019-02-22 16:39 | PROVIDER PROGRESS NOTE ---
Assessment/Plan - Problem List (1) Flash pulmonary edema Assessment/Plan: His lungs are clear by auscultation. He has had good negative fluid balance. BUN/creatinine ratio has increased, therefore we will stop the IV Lasix and start daily p.o. Lasix only, and he was already started on Spironolactone this a dmission. (2) Acute IA Assessment/Plan: The new LBBB and more than doubling of the first troponin are consistent with an acute IA. The troponin peaked at 0.18, suggesting a small IA. The echo did show a depressed LVEF of 40%. Medical management as planned: 48 hours of Lovenox anticoagulation, beta- blockers and aspirin. Check lipid status. No transfer for angiography. He is also not a candidate for defibrillator. (3) Acute systolic CHF (congestive heart failure), NYHA class 3 Assessment/Plan: The LVEF of 40% was seen on echo. Continue with the beta-blockers as planned for the IA, cannot use MIKE inhibitors, arms or hydralazine with nitrates because of his fixed afterload from the severe aortic stenosis. Will change iv to a po loop diuretic and continue spironolactone (4) Aortic stenosis, severe Assessment/Plan: Patient's wishes were for limited intervention therefore he is not a candidate for open heart surgery or TAVR (5) COPD exacerbation Assessment/Plan: Continue with nebs, steroids, supplemental oxygen. He will also need an RT exercise walk test to assess if he needs oxygen at the time of discharge. Planning for DCh tomorrow. (6) DM type 2 (diabetes mellitus, type 2) Assessment/Plan: He has very good glucose control with A1c of less than 6. Continue with carb controlled diet, fingerstick checks and sliding scale insulin (7) History of CVA with residual deficit Assessment/Plan: Apparently he has had 2 strokes and has a poor memory. Continue with aspirin treatment, check lipids (8) Anemia Assessment/Plan: His B12 and Folate levels were adequate, but Iron stores are low. Will check stool guiac. Will start Iron replacement. (9) AMBERLY on CPAP Assessment/Plan: He is using home CPAP while here. (10) Hx of essential hypertension Assessment/Plan: Stable on new combination of meds. - Current Meds Current Meds: Current Medications Generic Name Dose Route Start Last Admin Trade Name Freq PRN Reason Stop Dose Admin Albuterol/Ipratropium 3 ml 02/20/19 11:44 02/20/19 21:08 Duoneb INH 3 ml Q4HR PRN Administration Wheezing Albuterol/Ipratropium 3 ml 02/20/19 15:00 02/22/19 14:54 Duoneb INH 3 ml RTQID CARLOS Administration Aspirin 81 mg 02/22/19 10:00 02/22/19 10:30 Ecotrin PO 81 mg DAILY CARLOS Administration Atorvastatin Calcium 10 mg 02/20/19 21:00 02/21/19 20:27 Lipitor PO 10 mg QPM CARLOS Administration Buspirone HCl 10 mg 02/20/19 21:00 02/22/19 10:30 Buspar PO 10 mg BID CARLOS Administration Carbidopa/Levodopa 1 tab 02/20/19 20:00 02/21/19 20:27 Sinemet 25 Mg/100 Mg PO 1 tab 2000 CARLOS Administration Carbidopa/Levodopa 3 tab 02/21/19 09:00 02/22/19 10:30 Sinemet 25 Mg/100 Mg PO 3 tab DAILY CARLOS Administration Carbidopa/Levodopa 1 tab 02/21/19 16:00 02/22/19 16:33 Sinemet 25 Mg/100 Mg PO 1 tab 1600 CARLOS Administration Citalopram Hydrobromide 40 mg 02/21/19 09:00 02/22/19 10:30 Celexa PO 40 mg DAILY CARLOS Administration Clopidogrel Bisulfate 75 mg 02/21/19 09:00 02/22/19 10:31 Plavix PO 75 mg DAILY CARLOS Administration Enoxaparin Sodium 40 mg 02/22/19 10:00 02/22/19 10:28 Lovenox SUBQ 40 mg DAILY CARLOS Administration Famotidine 20 mg 02/20/19 21:00 02/22/19 10:30 Pepcid PO 20 mg BID CARLOS Administration Formoterol Fumarate 20 mcg 02/20/19 19:00 02/22/19 07:25 Perforomist INH 20 mcg RTBID CARLOS Administration Insulin Aspart 1 - 9 unit 02/21/19 08:00 02/22/19 16:34 Novolog SUBQ 1 unit 0800,1200,1700,2100 CARLOS Administration Protocol Metoprolol Succinate 25 mg 02/21/19 09:00 02/22/19 10:30 Toprol Xl PO 25 mg BID CARLOS Administration Oxybutynin Chloride 5 mg 02/21/19 09:00 02/22/19 10:30 Ditropan PO 5 mg DAILY CARLOS Administration Polyethylene Glycol 17 gm 02/21/19 09:00 02/22/19 10:31 Miralax PO 17 gm DAILY CARLOS Administration Sodium Chloride 10 ml 02/20/19 17:00 02/22/19 16:34 Normal Saline Flush 0.9% IVP 10 ml 0100,0900,1700 CARLOS Administration Spironolactone 25 mg 02/21/19 09:00 02/22/19 10:30 Aldactone PO 25 mg DAILY CARLOS Administration - Lab Result Fish Bone Diagrams: 02/22/19 05:12 02/22/19 05:12 - Additional Planning My Orders: My Active Orders 02/21/19 16:00 Carbidopa/Levodopa 25/100 [Sinemet 25 mg/100 mg] 1 tab PO 1600 02/22/19 10:00 Aspirin EC [Ecotrin] 81 mg PO DAILY Enoxaparin [Lovenox] 40 mg SUBQ DAILY 02/22/19 10:21 IV Discontinuation [RC] .ONCE 02/23/19 05:00 BMP - BASIC METABOLIC PANEL [CHEM] DAILYLAB MAGNESIUM [CHEM] DAILYLAB 02/23/19 09:00 Furosemide [Lasix] 40 mg PO DAILY 02/24/19 05:00 BMP - BASIC METABOLIC PANEL [CHEM] DAILYLAB MAGNESIUM [CHEM] DAILYLAB Subjective - Subjective Patient Reports: Resting Comfortably, No Complaints Nursing Reports: No Complaints Objective Vital Signs: Vital Signs - 24 hr 02/21/19 02/21/19 02/21/19 18:00 20:04 22:10 Temperature 36.7 C Heart Rate 80 89 Heart Rate [ 91 Brachial] Respiratory 24 24 20 Rate Blood Pressure [Left Brachial artery] Blood Pressure 120/77 [Right Brachial artery] O2 Saturation 94 02/21/19 02/22/19 02/22/19 23:31 05:38 07:30 Temperature 36.4 C L 36.6 C Heart Rate 84 Heart Rate [ 100 67 Brachial] Respiratory 16 16 20 Rate Blood Pressure 137/84 H 136/66 H [Left Brachial artery] Blood Pressure [Right Brachial artery] O2 Saturation 93 96 02/22/19 02/22/19 02/22/19 09:00 10:53 12:44 Temperature 36.6 C 36.5 C Heart Rate 64 Heart Rate [ 84 83 Brachial] Respiratory 17 22 16 Rate Blood Pressure 122/79 [Left Brachial artery] Blood Pressure 106/55 L [Right Brachial artery] O2 Saturation 97 98 02/22/19 02/22/19 14:54 15:43 Temperature 36.5 C Heart Rate 74 Heart Rate [ 82 Brachial] Respiratory 20 20 Rate Blood Pressure [Left Brachial artery] Blood Pressure 129/69 [Right Brachial artery] O2 Saturation 97 Oxygen O2 Source Nasal cannula Oxygen Flow Rate 2 I&O (Last 24 Hrs): Intake and Output Totals x24h 02/20/19 02/21/19 02/22/19 23:59 23:59 23:59 Intake Total 960 1202 900 Output Total 250 475 Balance 710 727 900 General: Alert HEENT: Mucous membr. moist/pink Neck: Supple Neuro: Non Focal, Other (Poor memory) Cardiovascular: Regular rate Respiratory: No respiratory distress, Breath sounds nml Abdomen: Soft, Other (Obese) Extremities: No edema - Results Results: Laboratory Results WBC 8.5 x10^3/uL (4.8-10.8) 02/22/19 05:12 RBC 3.87 10^6/uL (4.70-6.10) L 02/22/19 05:12 Hgb 11.1 g/dL (14.0-18.0) L 02/22/19 05:12 Hct 34.4 % (42.0-52.0) L 02/22/19 05:12 MCV 88.9 fL (80.0-94.0) 02/22/19 05:12 MCH 28.7 pg (27.0-31.0) 02/22/19 05:12 MCHC 32.3 g/dL (32.0-36.0) 02/22/19 05:12 RDW 14.6 % (12.0-15.0) 02/22/19 05:12 Plt Count 309 10^3/uL (130-450) 02/22/19 05:12 MPV 9.8 fL (7.4-11.4) 02/22/19 05:12 Neut # (Auto) 7.4 10^3/uL (1.5-6.6) H 02/22/19 05:12 Lymph # (Auto) 0.6 10^3/uL (1.5-3.5) L 02/22/19 05:12 [place] # (Auto) 0.5 10^3/uL (0.0-1.0) 02/22/19 05:12 Eos # (Auto) 0.0 10^3/uL (0.0-0.7) 02/22/19 05:12 Baso # (Auto) 0.0 10^3/uL (0.0-0.1) 02/22/19 05:12 Absolute Nucleated RBC 0.00 x10^3/uL 02/22/19 05:12 Nucleated RBC % 0.0 /100WBC 02/22/19 05:12 PT 12.0 secs (9.9-12.6) 02/20/19 06:05 INR 1.1 (0.8-1.2) 02/20/19 06:05 APTT 26.7 secs (24.9-33.3) 02/20/19 06:05 Bld Gas Analysis Time 1035 02/20/19 10:35 Sample Site RIGHT RADIAL 02/20/19 10:35 ABG pH 7.42 (7.35-7.45) 02/20/19 10:35 ABG pCO2 36 mmHg (34-45) 02/20/19 10:35 ABG pO2 141 mmHg (80-100) H 02/20/19 10:35 ABG HCO3 22.9 mmol/L (22.0-26.0) 02/20/19 10:35 ABG Total CO2 24.0 MMOL/L (21.0-29.0) 02/20/19 10:35 ABG O2 Saturation 99 % (94-98) H 02/20/19 10:35 ABG Base Excess -1.2 mmol/L (-2.0-3.0) 02/20/19 10:35 Paul Test POSITIVE 02/20/19 10:35 Respiration Rate 16 b/min 02/20/19 10:35 O2 Delivery Device BiPAP 02/20/19 10:35 Vent Mode 5 02/20/19 10:35 FiO2 40.00 02/20/19 10:35 Pressure Support Vent 6 cmH2O 02/20/19 10:35 EPAP 6 cmH2O 02/20/19 10:35 IPAP 12 cmH2O 02/20/19 10:35 Sodium 141 mmol/L (135-145) 02/22/19 05:12 Potassium 4.5 mmol/L (3.5-5.0) 02/22/19 05:12 Chloride 103 mmol/L (101-111) 02/22/19 05:12 Carbon Dioxide 27 mmol/L (21-32) 02/22/19 05:12 Anion Gap 11.0 (6-13) 02/22/19 05:12 BUN 57 mg/dL (6-20) H 02/22/19 05:12 Creatinine 1.1 mg/dL (0.6-1.2) 02/22/19 05:12 Estimated GFR (MDRD) 64 (>89) L 02/22/19 05:12 Glucose 152 mg/dL (70-100) H 02/22/19 05:12 Glycated Hemoglobin 6.4 % (4.6-6.2) H 02/20/19 13:00 Estim Average Glucose 137 (70-100) H 02/20/19 13:00 Calcium 8.9 mg/dL (8.5-10.3) 02/22/19 05:12 Magnesium 2.7 mg/dL (1.7-2.8) 02/22/19 05:12 Iron 24 ug/dL (45-182) L 02/22/19 05:12 TIBC 351 ug/dL (250-450) 02/22/19 05:12 % Saturation 7 % (20-50) L 02/22/19 05:12 Transferrin 251 mg/dL (180-329) 02/22/19 05:12 Total Bilirubin 0.6 mg/dL (0.2-1.0) 02/20/19 06:05 AST 23 IU/L (10-42) 02/20/19 06:05 ALT < 10 IU/L (10-60) L 02/20/19 06:05 Alkaline Phosphatase 48 IU/L (42-121) 02/20/19 06:05 Troponin I 0.18 ng/mL (<0.49) 02/20/19 21:17 B-Natriuretic Peptide 1502 pg/mL (5-100) H 02/22/19 05:12 Total Protein 7.4 g/dL (6.7-8.2) 02/20/19 06:05 Albumin 3.7 g/dL (3.2-5.5) 02/20/19 06:05 Globulin 3.7 g/dL (2.1-4.2) 02/20/19 06:05 Albumin/Globulin Ratio 1.0 (1.0-2.2) 02/20/19 06:05 Lipase 25 U/L (22-51) 02/20/19 06:05 Vitamin B12 474 pg/mL (180-914) 02/22/19 05:12 Folate 23.82 ng/mL (5.90 - >24.8) 02/22/19 05:12 Urine Color YELLOW 02/20/19 06:05 Urine Clarity HAZY (CLEAR) 02/20/19 06:05 Urine pH 6.0 PH (5.0-7.5) 02/20/19 06:05 Ur Specific [place] 1.010 (1.002-1.030) 02/20/19 06:05 Urine Protein NEGATIVE mg/dL (NEGATIVE) 02/20/19 06:05 Urine Glucose (UA) NEGATIVE mg/dL (NEGATIVE) 02/20/19 06:05 Urine Ketones NEGATIVE mg/dL (NEGATIVE) 02/20/19 06:05 Urine Occult Blood NEGATIVE (NEGATIVE) 02/20/19 06:05 Urine Nitrite NEGATIVE (NEGATIVE) 02/20/19 06:05 Urine Bilirubin NEGATIVE (NEGATIVE) 02/20/19 06:05 Urine Urobilinogen 0.2 (NORMAL) E.U./dL (NORMAL) 02/20/19 06:05 Ur Leukocyte Esterase NEGATIVE (NEGATIVE) 02/20/19 06:05 Urine RBC 0-5 /HPF (0-5) 02/20/19 06:05 Urine WBC 0-3 /HPF (0-3) 02/20/19 06:05 Ur Squamous Epith Cells FEW Squamous (<= Few) 02/20/19 06:05 Amorphous Sediment Few /LPF 02/20/19 06:05 Urine Bacteria Few /HPF (None Seen) 02/20/19 06:05 Ur Microscopic Review INDICATED 02/20/19 06:05 Urine Culture Comments NOT INDICATED 02/20/19 06:05 - Procedures Procedures: Procedures REPLACEMENT OF LEFT LENS WITH SYNTH SUB, PERC APPROACH (01/22/16) REPLACEMENT OF RIGHT LENS WITH SYNTH SUB, PERC APPROACH (11/27/15)
[2019-02-22] MEDS: traZODone 50 MG TABLET PO SCH (20:42)
[2019-02-22] MEDS: ATORVASTATIN 10 MG TABLET PO SCH (20:42)
[2019-02-23] MEDS: SODIUM CHLORIDE FLUSH 0.9% 10 ML SYRINGE IVP SCH ×3 (02:45→17:57)
[2019-02-23 06:07] LABS: CALCIUM 8.7 mg/dL (8.5-10.3); MAGNESIUM 2.6 mg/dL (1.7-2.8)
[2019-02-23 06:15] LABS: CHOL/HDL RATIO 3.3 (<5.0); CHOLESTEROL 183 mg/dL; HDL CHOLESTEROL 56 mg/dL; LDL CHOLESTEROL,CALCULATED 107 mg/dL; LDL/HDL RATIO 1.9 (<3.6); VLDL CHOLESTEROL 20 mg/dL
[2019-02-23] MEDS: INSULIN ASPART 300 UNIT/3 ML PEN SUBQ SCH ×4 (08:25→20:03)
[2019-02-23] MEDS: CLOPIDOGREL 75 MG TABLET PO SCH (08:26)
[2019-02-23] MEDS: OXYBUTYNIN 5MG TABLET PO SCH (08:26)
[2019-02-23] MEDS: ASPIRIN EC 81 MG TABLET PO SCH (08:26)
[2019-02-23] MEDS: busPIRone 5 MG TABLET PO SCH ×2 (08:26→21:45)
[2019-02-23] MEDS: CITALOPRAM HYDROBROMIDE 20 MG TABLET PO SCH (08:26)
[2019-02-23] MEDS: FAMOTIDINE 20 MG TABLET PO SCH ×2 (08:26→21:45)
[2019-02-23] MEDS: METOPROLOL SUCCINATE 25 MG TABLET PO SCH ×2 (08:26→21:46)
[2019-02-23] MEDS: CARBIDOPA/LEVODOPA 25 MG/100 MG TABLET PO SCH ×3 (08:26→21:45)
[2019-02-23] MEDS: SPIRONOLACTONE 25 MG TABLET PO SCH (08:26)
[2019-02-23] MEDS: ENOXAPARIN 40 MG/0.4 ML SYRINGE SUBQ SCH (08:27)
[2019-02-23] MEDS: FORMOTEROL FUMARATE NEB 20 MCG/2 ML INH SCH ×2 (08:54→18:22)
[2019-02-23] MEDS: IPRATROPIUM/ALBUTEROL 3 ML NEB INH SCH ×4 (08:54→18:13)
[2019-02-23] MEDS ORDERED: FUROSEMIDE 40 MG TABLET PO SCH (09:00)
--- NOTE | 2019-02-23 11:02 | Discharge Plan ---
"Discharge Plan for SNF / [facility] - Discharge Plan And Transition Orders Problem Reviewed?: Yes Disposition: 03 SNF DC/Xfer Condition: Fair Allergies and Adverse Reactions: Allergies Allergy/AdvReac Type Severity Reaction Status Date / Time No Known Drug Allergies Allergy Verified 01/21/16 14:57 Health Concerns: Shortness of breath from pulmonary fluid, heart attack, emphysema and valvular heart disease. Plan of Treatment: Adjust medications for treatment of the pulmonary fluid, heart attack, continue medications for emphysema. A new prescription for oxygen was started, suppleme ntal oxygen is needed with exertion. Physical therapy at alf facility for strengthening before returning home. Care Goals: Improve strength during activity. Improve sensation of shortness of breath with activity. Assessment: The patient is agreeable with the plan, which was also reviewed with his during this admission. - SNF / [facility] Transition Orders Admit to (Facility): [facility] Under the care of (Name): Dr Jesse Desouza Discharge Diagnosis: (1) Flash pulmonary edema (2) Acute AL (and new LBBB) (3) Acute systolic CHF, NYHA class 3 (4) Aortic stenosis, severe (5) COPD with exacerbation exacerbation (6) DM, type 2 (7) History of CVA with residual deficit (poor memory) (8) Anemia, iron deficiency (9) Sleep apnea on CPAP (10) History of Hypertension (11) History of Parkinson's Disease (12) Code Status: DNR Medicare Certification Statement: I certify that [facility] Hospital alf care is medically necessary on a continuing basis for any of the conditions for which she/he is receiving care during hospitalization. Notify PCP of admission and forward orders to primary provider for signature. Weight on admission and: Daily Call PCP immediately if weight increases by: 3 kg Other Notification Orders: Call PCP immediately if patient develops dyspnea, chest pain/tightness or edema. House Bowel Program: Yes Additional Bowel Program Orders: If no BM after 2 days, nurse may give M.O.M. 30ml PO PRN and/or ducolax Supp 1 ND and/or LIN 250mg P.O., and/or senna 1-2 tabs PO. On day 3 nurse may give repeat above order until residents constipation is resolved. Annual Influenza Vaccine (between Apr 22 and November 19): Yes Two-step PPD per [facility] [id number] or approved exception documents: Yes Treatments & Other Orders: Daily PT and OT. Home CPAP device to be used during sleep. Oxygen Orders: 3 L O2 per nasal cannula, during exertion (including when he is getting out of bed) Lab Tests or X-ray Orders: BMP and Mg every Mon Medication Orders: PLEASE REFER TO THE DISCHARGE MEDICATION LIST. Insulin Orders?: Yes - Medications New Prescriptions: Aspirin [Aspirin EC] 81 mg PO DAILY #30 tablet. Atorvastatin [Lipitor] 10 mg PO QPM #30 tablet Ferrous Gluconate 240 mg PO 1200 #30 tablet Insulin Aspart [NovoLOG] 1 - 9 unit SUBQ 0800,1200,1700,2100 #2 pen Ipratropium/Albuterol [Duoneb] 3 ml INH QID #120 neb Methylprednisolone [Medrol Dose Pack] 1 each PO .PACKAGEINSTRUCTIONS 6 Days #1 each Metoprolol Succinate [Toprol Xl] 25 mg PO BID #60 tablet Oxybutynin [Ditropan] 5 mg PO DAILY #30 tablet Spironolactone [Aldactone] 25 mg PO 0800 #30 tablet - Diet Type: Diabetic diet Texture: Regular Liquids: Thin May have monthly special meal: Yes - Therapies | Activity Therapy: Evaluation | Treat if indicated: PT, OT Rehabilitation Potential: Maximize functional status Activity: Activity as Tolerated Weight Bearing: Full Weight Assistance Devices: Walker Follow Up: See PCP, Natanael Tirado in follow-up after discharge from the alf facility Insulin Orders - [facility] Basal | Correction | Custom Orders: Diagnosis: Diabetes Initiate hypo and hyperglycemia protocols for BG <70 and BG >375. May check BG PRN for signs/symptoms of dysglycemia. Frequency of BG checks: [AC/Meal/HS] Basal Insulin: None Correction Insulin: - Select the type of insulin below Novalog 100 units /ml insulin inject subq per orders indicate below [] LOW DOSE [X] MODERATE DOSE [] MODERATE/HIGH DOSE [] HIGH DOSE GB UNITS GB UNITS GB UNITS GB UNITS 61-140 0 UNITS 61-140 0 UNITS 61-140 0 UNITS 61-140 0 UNITS 141-175 1 UNITS 141-175 1 UNITS 141-175 2 UNITS 141-175 3 UNITS 176-225 2 UNITS 176-225 3 UNITS 176-225 4 UNITS 176-225 5 UNITS 226-275 3 UNITS 226-275 5 UNITS 226-275 6 UNITS 226-275 7 UNITS 276-325 4 UNITS 276-325 7 UNITS 276-325 8 UNITS 276-325 9 UNITS 326-375 5 UNITS 326-375 9 UNITS 326-375 10 UNITS 326-375 11 UNITS >375 CONTACT MD >375 CONTACT MD >375 CONTACT MD >375 CONTACT MD"
[2019-02-23] MEDS: BUDESONIDE 0.5 MG/2 ML NEB INH SCH ×2 (11:40→18:22)
--- NOTE | 2019-02-23 11:40 | XRAY Report ---
Reason: F/U pulm edema Procedure Date: 02/23/2019 Accession Number: [id number] / [id number] Procedure: XR - Chest 1 View X-Ray CPT Code: 40697 FULL RESULT: EXAM: CHEST RADIOGRAPHY EXAM DATE: 02/23/2019 11:08 AM. CLINICAL HISTORY: F/U pulm edema. COMPARISON: CHEST 1 VIEW 02/20/2019 6:09 AM. TECHNIQUE: 1 view. FINDINGS: Lungs/Pleura: Mild improvement in vascular congestion. Elevated right hemidiaphragm again seen. No pneumothorax. Mediastinum: Heart size and mediastinal contour are stable. Other: Catheter projected over the right hemithorax is again seen. IMPRESSION: 1. Mild improvement. RADIA
[2019-02-23] MEDS: POLYETHYLENE GLYCOL 3350 17 GM PACKET PO SCH (12:17)
[2019-02-23] MEDS: FERROUS GLUCONATE 324 MG TABLET PO SCH (12:35)
--- NOTE | 2019-02-23 18:00 | PROVIDER PROGRESS NOTE ---
Assessment/Plan - Problem List (1) Flash pulmonary edema Assessment/Plan: He is more SOB today. Chest x-ray this morning shows improvement in vascular congestion and the BNP is trending down but both could be delayed results, compared to his clinical status. Will increase the Lasix from daily to po bid and also increase management of his pulmonary status, starting steroids. (2) Acute VT Assessment/Plan: He had new LBBB this admission. Medical management is planned, no coronary angiography, per his POLST. He is on (new) beta-denisa, (new) aspirin, (new) statin and Plavix. He finished 48 hours of therapeutic dose Lovenox. (3) Acute systolic CHF (congestive heart failure), NYHA class 3 Assessment/Plan: He has new LBBB this admission. The LVEF is 40% by Echo this admission, this was discussed with the daughter at bedside who is a nurse practitioner from out of state. Continue (new) B-denisa and Lasix. Add Spironolactone. No MIKE or ARB due to fixed afterload with severe aortic stenosis. He is not a candidate to get an ICD due to DNR status. (4) Aortic stenosis, severe Assessment/Plan: No MIKE or ARB due to fixed afterload with severe aortic stenosis. He will need Cardiology F/U given new VT, cardiomyopathy and . (5) COPD exacerbation Assessment/Plan: Today's SOB may be cardiac asthma vs more of a COPD exacerbation. The daughter arrived from [place] today and has been in his room all day. She is an UNIT AID. She describes that he needs steroid and steroid inhalers when he gets a COPD exacerbation. She also reviewed the med list and says he is on 4 inhalers plus he is on Duoneb via nebulizer, which we don't have on the med list at all. As such, I will order stress dose steroids and Duoneb nebulizer treatments. He had an oximetry evaluation with RT during PT today: he saturated at 92% on R.A. but dropped below 88% as soon as he started to arise to get OOB and desaturated during walking (he only took several steps from bed to chair). Therefore, he qualifies for Home O2, an order was submitted for O2 per n.c. at 3L during any activity, starting with getting up from a reclining position. (6) AMBERLY on CPAP Assessment/Plan: He is using his home CPAP devisce while here. RT recommends that we evaluate for desats overnight, to assess if the hHome O2 is also needed while he sleeps. I ordered the overnight oximetry study. (7) DM type 2 (diabetes mellitus, type 2) Assessment/Plan: He has exessively good glu control with his A1c at admission of 6.4. He is on a carb-controlled diet and ss Insulin coverage, no long acting Insulin. The daughter, who is an UNIT AID from [place], says he only needs extra coverage when he is on steroids which raise his glu. At his age of 83, his A1c does not need to be this low. Will stop the ss Insulin and will liberalize the glu by decreasing the metformin, since I only plan a short course of steroids (5 days). He will be DC with a Medrol dose-Jude. (8) History of CVA with residual deficit Assessment/Plan: Memory impairment is what the had told me was his only sequala from several old strokes. (9) Anemia Qualifiers: Anemia type: iron deficiency Assessment/Plan: Iron reolacement started yesterday. Guiac of stool was neg. (10) Hx of essential hypertension Assessment/Plan: BP is well controlled on his new cardiac meds that were started for VT and CHF. Amlodipine was stopped. (11) Parkinson disease Assessment/Plan: Continue with his home meds and doses of Carbidopa/Levodopa. (12) Weakness Assessment/Plan: He started PT rehab 2 days ago. He needs further strengthening and a SNF for PT rehab was planned, however his [employer] denied that today. No reason for the denial was given to the family or the Providers. The family is appealing the decision. The daughter was told, in a phone conversatio with [place], that a decision regarding the appeal may be available by 5 pm today, but that they have 3 days by contract to reply. There was no decision by 5 pm. Utilization Review was made aware. The daughter also described to Social Work that the family is considering having him go to a different facility, where he may get Home Health. Therefore, today I ordered a Home Health referral for [facility], Bath Aide, and Physical Therapist, and told UR of that as well. (13) touch up worker involved in patient's care Assessment/Plan: As above in #12. SW spent several hours on his case today. I expect that he will be ready for [facility] tomorrow. - Current Meds Current Meds: Current Medications Generic Name Dose Route Start Last Admin Trade Name Freq PRN Reason Stop Dose Admin Albuterol/Ipratropium 3 ml 02/20/19 11:44 02/20/19 21:08 Duoneb INH 3 ml Q4HR PRN Administration Wheezing Albuterol/Ipratropium 3 ml 02/20/19 15:00 02/23/19 14:56 Duoneb INH 3 ml RTQID CARLOS Administration Aspirin 81 mg 02/22/19 10:00 02/23/19 08:26 Ecotrin PO 81 mg DAILY CARLOS Administration Atorvastatin Calcium 10 mg 02/20/19 21:00 02/22/19 20:42 Lipitor PO 10 mg QPM CARLOS Administration Budesonide 0.5 mg 02/23/19 11:01 02/23/19 11:40 Pulmicort INH 0.5 mg RTBID CARLOS Administration Buspirone HCl 10 mg 02/20/19 21:00 02/23/19 08:26 Buspar PO 10 mg BID CARLOS Administration Carbidopa/Levodopa 1 tab 02/20/19 20:00 02/22/19 20:42 Sinemet 25 Mg/100 Mg PO 1 tab 2000 CARLOS Administration Carbidopa/Levodopa 3 tab 02/21/19 09:00 02/23/19 08:26 Sinemet 25 Mg/100 Mg PO 3 tab DAILY CARLOS Administration Carbidopa/Levodopa 1 tab 02/21/19 16:00 02/23/19 17:49 Sinemet 25 Mg/100 Mg PO 1 tab 1600 CARLOS Administration Citalopram Hydrobromide 40 mg 02/21/19 09:00 02/23/19 08:26 Celexa PO 40 mg DAILY CARLOS Administration Clopidogrel Bisulfate 75 mg 02/21/19 09:00 02/23/19 08:26 Plavix PO 75 mg DAILY CARLOS Administration Enoxaparin Sodium 40 mg 02/22/19 10:00 02/23/19 08:27 Lovenox SUBQ 40 mg DAILY CARLOS Administration Famotidine 20 mg 02/20/19 21:00 02/23/19 08:26 Pepcid PO 20 mg BID CARLOS Administration Ferrous Gluconate 324 mg 02/23/19 12:00 02/23/19 12:35 Fergon PO 324 mg 1200 CARLOS Administration Formoterol Fumarate 20 mcg 02/20/19 19:00 02/23/19 08:54 Perforomist INH 20 mcg RTBID CARLOS Administration Insulin Aspart 1 - 9 unit 02/21/19 08:00 02/23/19 17:49 Novolog SUBQ Not Given 0800,1200,1700,2100 [facility] Protocol Metoprolol Succinate 25 mg 02/21/19 09:00 02/23/19 08:26 Toprol Xl PO 25 mg BID CARLOS Administration Oxybutynin Chloride 5 mg 02/21/19 09:00 02/23/19 08:26 Ditropan PO 5 mg DAILY CARLOS Administration Polyethylene Glycol 17 gm 02/21/19 09:00 02/23/19 12:17 Miralax PO Not Given DAILY CARLOS Sodium Chloride 10 ml 02/20/19 17:00 02/23/19 08:33 Normal Saline Flush 0.9% IVP Not Given 0100,0900,1700 [facility] Trazodone HCl 50 mg 02/22/19 21:00 02/22/19 20:42 Desyrel PO 50 mg QPM CARLOS Administration - Lab Result Fish Bone Diagrams: 02/22/19 05:12 02/24/19 04:50 - Additional Planning My Orders: My Active Orders 02/23/19 Home Health Referral [CONS] Routine 02/23/19 09:00 Oxygen Desat. Study w/Exercise [RC] .ONCE 02/23/19 11:01 Resp Teach Nebulizer/MDI [RC] .ONCE Budesonide [Pulmicort] 0.5 mg INH RTBID 02/23/19 12:00 Ferrous Gluconate [Fergon] 324 mg PO 1200 02/23/19 12:19 Discharge [RC] .ONCE Initiate Discharge Checklist [RC] .ONCE 02/24/19 05:00 BMP - BASIC METABOLIC PANEL [CHEM] DAILYLAB MAGNESIUM [CHEM] DAILYLAB 02/24/19 08:00 Furosemide [Lasix] 40 mg PO 0800 Spironolactone [Aldactone] 25 mg PO 0800 Subjective - Subjective Patient Reports: Resting Comfortably Nursing Reports: Other (Intermittently SOB: when tries to sit up at edge of bed alone, and with walking) Objective Vital Signs: Vital Signs - 24 hr 02/22/19 02/22/1919 20:28 23:24 05:00 Temperature 36.7 C 36.6 C 36.7 C Heart Rate Heart Rate [ 75 49 L 74 Brachial] Respiratory 24 25 H 20 Rate Blood Pressure 122/55 L 111/69 124/66 [Right Brachial artery] O2 Saturation 96 93 95 02/23/19 02/23/19 02/23/19 08:23 08:54 10:18 Temperature 36.6 C Heart Rate 71 125 H Heart Rate [ 70 Brachial] Respiratory 18 30 H Rate Blood Pressure 114/57 L [Right Brachial artery] O2 Saturation 96 02/23/19 02/23/19 02/23/19 11:40 14:56 15:22 Temperature 36.4 C L Heart Rate 74 75 Heart Rate [ 84 Brachial] Respiratory 24 32 H 22 Rate Blood Pressure 104/67 [Right Brachial artery] O2 Saturation 93 Oxygen O2 Source Room air Oxygen Flow Rate 2 I&O (Last 24 Hrs): Intake and Output Totals x24h 02/21/19 02/22/19 02/23/19 23:59 23:59 23:59 Intake Total 1202 1436 1477 Output Total 475 Balance 727 1436 1477 General: Alert HEENT: Mucous membr. moist/pink Neck: Supple, No JVD Neuro: Non Focal, Other (Poor memory) Cardiovascular: Regular rate Respiratory: Wheezes Abdomen: Soft, Other (Obese) Extremities: No edema - Results Results: Laboratory Results WBC 8.5 x10^3/uL (4.8-10.8) 02/22/19 05:12 RBC 3.87 10^6/uL (4.70-6.10) L 02/22/19 05:12 Hgb 11.1 g/dL (14.0-18.0) L 02/22/19 05:12 Hct 34.4 % (42.0-52.0) L 02/22/19 05:12 MCV 88.9 fL (80.0-94.0) 02/22/19 05:12 MCH 28.7 pg (27.0-31.0) 02/22/19 05:12 MCHC 32.3 g/dL (32.0-36.0) 02/22/19 05:12 RDW 14.6 % (12.0-15.0) 02/22/19 05:12 Plt Count 309 10^3/uL (130-450) 02/22/19 05:12 MPV 9.8 fL (7.4-11.4) 02/22/19 05:12 Neut # (Auto) 7.4 10^3/uL (1.5-6.6) H 02/22/19 05:12 Lymph # (Auto) 0.6 10^3/uL (1.5-3.5) L 02/22/19 05:12 [place] # (Auto) 0.5 10^3/uL (0.0-1.0) 02/22/19 05:12 Eos # (Auto) 0.0 10^3/uL (0.0-0.7) 02/22/19 05:12 Baso # (Auto) 0.0 10^3/uL (0.0-0.1) 02/22/19 05:12 Absolute Nucleated RBC 0.00 x10^3/uL 02/22/19 05:12 Nucleated RBC % 0.0 /100WBC 02/22/19 05:12 PT 12.0 secs (9.9-12.6) 02/20/19 06:05 INR 1.1 (0.8-1.2) 02/20/19 06:05 APTT 26.7 secs (24.9-33.3) 02/20/19 06:05 Bld Gas Analysis Time 1035 02/20/19 10:35 Sample Site RIGHT RADIAL 02/20/19 10:35 ABG pH 7.42 (7.35-7.45) 02/20/19 10:35 ABG pCO2 36 mmHg (34-45) 02/20/19 10:35 ABG pO2 141 mmHg (80-100) H 02/20/19 10:35 ABG HCO3 22.9 mmol/L (22.0-26.0) 02/20/19 10:35 ABG Total CO2 24.0 MMOL/L (21.0-29.0) 02/20/19 10:35 ABG O2 Saturation 99 % (94-98) H 02/20/19 10:35 ABG Base Excess -1.2 mmol/L (-2.0-3.0) 02/20/19 10:35 Paul Test POSITIVE 02/20/19 10:35 Respiration Rate 16 b/min 02/20/19 10:35 O2 Delivery Device BiPAP 02/20/19 10:35 Vent Mode 5 02/20/19 10:35 FiO2 40.00 02/20/19 10:35 Pressure Support Vent 6 cmH2O 02/20/19 10:35 EPAP 6 cmH2O 02/20/19 10:35 IPAP 12 cmH2O 02/20/19 10:35 Sodium 141 mmol/L (135-145) 02/23/19 05:22 Potassium 4.2 mmol/L (3.5-5.0) 02/23/19 05:22 Chloride 101 mmol/L (101-111) 02/23/19 05:22 Carbon Dioxide 28 mmol/L (21-32) 02/23/19 05:22 Anion Gap 12.0 (6-13) 02/23/19 05:22 BUN 56 mg/dL (6-20) H 02/23/19 05:22 Creatinine 1.0 mg/dL (0.6-1.2) 02/23/19 05:22 Estimated GFR (MDRD) 72 (>89) L 02/23/19 05:22 Glucose 100 mg/dL (70-100) 02/23/19 05:22 Glycated Hemoglobin 6.4 % (4.6-6.2) H 02/20/19 13:00 Estim Average Glucose 137 (70-100) H 02/20/19 13:00 Calcium 8.7 mg/dL (8.5-10.3) 02/23/19 05:22 Magnesium 2.6 mg/dL (1.7-2.8) 02/23/19 05:22 Iron 24 ug/dL (45-182) L 02/22/19 05:12 TIBC 351 ug/dL (250-450) 02/22/19 05:12 % Saturation 7 % (20-50) L 02/22/19 05:12 Transferrin 251 mg/dL (180-329) 02/22/19 05:12 Total Bilirubin 0.6 mg/dL (0.2-1.0) 02/20/19 06:05 AST 23 IU/L (10-42) 02/20/19 06:05 ALT < 10 IU/L (10-60) L 02/20/19 06:05 Alkaline Phosphatase 48 IU/L (42-121) 02/20/19 06:05 Troponin I 0.18 ng/mL (<0.49) 02/20/19 21:17 B-Natriuretic Peptide 1502 pg/mL (5-100) H 02/22/19 05:12 Total Protein 7.4 g/dL (6.7-8.2) 02/20/19 06:05 Albumin 3.7 g/dL (3.2-5.5) 02/20/19 06:05 Globulin 3.7 g/dL (2.1-4.2) 02/20/19 06:05 Albumin/Globulin Ratio 1.0 (1.0-2.2) 02/20/19 06:05 Triglycerides 101 mg/dL (-149) 02/23/19 05:22 Cholesterol 183 mg/dL (-199) 02/23/19 05:22 LDL Cholesterol, Calc 107 mg/dL (-129) 02/23/19 05:22 VLDL Cholesterol 20 mg/dL 02/23/19 05:22 HDL Cholesterol 56 mg/dL (60-) L 02/23/19 05:22 LDL/HDL Ratio 1.9 (<3.6) 02/23/19 05:22 Cholesterol/HDL Ratio 3.3 (<5.0) 02/23/19 05:22 Lipase 25 U/L (22-51) 02/20/19 06:05 Vitamin B12 474 pg/mL (180-914) 02/22/19 05:12 Folate 23.82 ng/mL (5.90 - >24.8) 02/22/19 05:12 Urine Color YELLOW 02/20/19 06:05 Urine Clarity HAZY (CLEAR) 02/20/19 06:05 Urine pH 6.0 PH (5.0-7.5) 02/20/19 06:05 Ur Specific [place] 1.010 (1.002-1.030) 02/20/19 06:05 Urine Protein NEGATIVE mg/dL (NEGATIVE) 02/20/19 06:05 Urine Glucose (UA) NEGATIVE mg/dL (NEGATIVE) 02/20/19 06:05 Urine Ketones NEGATIVE mg/dL (NEGATIVE) 02/20/19 06:05 Urine Occult Blood NEGATIVE (NEGATIVE) 02/20/19 06:05 Urine Nitrite NEGATIVE (NEGATIVE) 02/20/19 06:05 Urine Bilirubin NEGATIVE (NEGATIVE) 02/20/19 06:05 Urine Urobilinogen 0.2 (NORMAL) E.U./dL (NORMAL) 02/20/19 06:05 Ur Leukocyte Esterase NEGATIVE (NEGATIVE) 02/20/19 06:05 Urine RBC 0-5 /HPF (0-5) 02/20/19 06:05 Urine WBC 0-3 /HPF (0-3) 02/20/19 06:05 Ur Squamous Epith Cells FEW Squamous (<= Few) 02/20/19 06:05 Amorphous Sediment Few /LPF 02/20/19 06:05 Urine Bacteria Few /HPF (None Seen) 02/20/19 06:05 Ur Microscopic Review INDICATED 02/20/19 06:05 Urine Culture Comments NOT INDICATED 02/20/19 06:05 - Procedures Procedures: Procedures REPLACEMENT OF LEFT LENS WITH SYNTH SUB, PERC APPROACH (01/22/16) REPLACEMENT OF RIGHT LENS WITH SYNTH SUB, PERC APPROACH (11/27/15) ABX Reporting Has patient been on IV antibiotics over the past 48 hours?: No
[2019-02-23] MEDS ORDERED: methylPREDNISolone SUCCINATE 40 MG/ML VIAL IVP SCH (18:24)
[2019-02-23] MEDS ORDERED: FUROSEMIDE 40 MG TABLET PO ONE (18:25)
[2019-02-23] MEDS: traZODone 50 MG TABLET PO SCH (21:45)
[2019-02-23] MEDS: ATORVASTATIN 10 MG TABLET PO SCH (21:46)
[2019-02-24] MEDS: SODIUM CHLORIDE FLUSH 0.9% 10 ML SYRINGE IVP SCH ×2 (01:06→08:17)
[2019-02-24 05:15] LABS: CALCIUM 8.6 mg/dL (8.5-10.3); CREATININE 1.1 mg/dL (0.6-1.2); MAGNESIUM 2.6 mg/dL (1.7-2.8)
[2019-02-24] MEDS ORDERED: methylPREDNISolone SUCCINATE 40 MG/ML VIAL IVP SCH (06:00)
[2019-02-24] MEDS: FORMOTEROL FUMARATE NEB 20 MCG/2 ML INH SCH (07:59)
[2019-02-24] MEDS: BUDESONIDE 0.5 MG/2 ML NEB INH SCH (07:59)
[2019-02-24] MEDS: IPRATROPIUM/ALBUTEROL 3 ML NEB INH SCH ×2 (07:59→11:06)
[2019-02-24] MEDS ORDERED: FUROSEMIDE 40 MG TABLET PO SCH ×2 (08:00)
[2019-02-24] MEDS ORDERED: SPIRONOLACTONE 25 MG TABLET PO SCH (08:00)
[2019-02-24] MEDS: ASPIRIN EC 81 MG TABLET PO SCH (08:16)
[2019-02-24] MEDS: POLYETHYLENE GLYCOL 3350 17 GM PACKET PO SCH (08:16)
[2019-02-24] MEDS: CITALOPRAM HYDROBROMIDE 20 MG TABLET PO SCH (08:17)
[2019-02-24] MEDS: CARBIDOPA/LEVODOPA 25 MG/100 MG TABLET PO SCH (08:17)
[2019-02-24] MEDS: ENOXAPARIN 40 MG/0.4 ML SYRINGE SUBQ SCH (08:17)
[2019-02-24] MEDS: OXYBUTYNIN 5MG TABLET PO SCH (08:17)
[2019-02-24] MEDS: CLOPIDOGREL 75 MG TABLET PO SCH (08:18)
[2019-02-24] MEDS: FAMOTIDINE 20 MG TABLET PO SCH (08:18)
[2019-02-24] MEDS: METOPROLOL SUCCINATE 25 MG TABLET PO SCH ×2 (08:18→08:20)
[2019-02-24] MEDS: busPIRone 5 MG TABLET PO SCH (08:18)
[2019-02-24] MEDS: INSULIN ASPART 300 UNIT/3 ML PEN SUBQ SCH ×2 (08:25→12:10)
--- NOTE | 2019-02-24 09:08 | Discharge Plan ---
"Discharge Plan for SNF / [facility] - Discharge Plan And Transition Orders Problem Reviewed?: Yes Disposition: 06 Home Health Service Condition: Fair Allergies and Adverse Reactions: Allergies Allergy/AdvReac Type Severity Reaction Status Date / Time No Known Drug Allergies Allergy Verified 01/21/16 14:57 Health Concerns: Shortness of breath from pulmonary fluid, heart attack, emphysema and valvular heart disease. Plan of Treatment: New medications for treatment of the lung fluid and heart attack, and continue medications for emphysema, Diabetes, Parkinsons disease, etc. A new pre scription for oxygen was ordered for supplemental oxygen which is needed with exertion. Home Health visits from a Skilled Nurse, Bath Aide, Physical Therapy for strengthening and Occupational Therapy were ordered. Care Goals: Improve strength during activity. Improve sensation of shortness of breath with activity. Assessment: The patient is agreeable with the plan, which was also reviewed during this admission with his and daughter (who is an [employer]). - SNF / [facility] Transition Orders Admit to (Facility): [facility] Discharge Diagnosis: (1) Flash pulmonary edema (2) Acute PA (and new LBBB) (3) Acute systolic CHF, NYHA class 3 (4) Aortic stenosis, severe (5) COPD, with exacerbation, on (new) home oxygen (6) DM, type 2 (7) History of CVA with residual deficit (poor memory) (8) Anemia, iron deficiency (9) Sleep apnea, on CPAP (10) History of Hypertension (11) History of Parkinson's Disease (12) Code Status: DNR Medicare Certification Statement: I certify that Post Hospital detention care is medically necessary on a continuing basis for any of the conditions for which she/he is receiving care during hospitalization. Notify PCP of admission and forward orders to primary provider for signature. Weight on admission and: Weekly Call PCP immediately if weight increases by: 5 kg Other Notification Orders: Call PCP immediately if patient develops dyspnea, chest pain/tightness or edema. House Bowel Program: Yes Additional Bowel Program Orders: If no BM after 2 days, nurse may give M.O.M. 30ml PO PRN and/or ducolax Supp 1 [place] and/or ILN 250mg P.O., and/or senna 1-2 tabs PO. On day 3 nurse may give repeat above order until residents constipation is resolved. Annual Influenza Vaccine (between Apr 22 and November 19): Yes Two-step PPD per [facility] [phone] or approved exception documents: Yes Treatments & Other Orders: PT and OT from Home Health service. Use home CPAP device every night for sleep. Oxygen Orders: O2 at 3L per nasal cannula with activity Medication Orders: PLEASE REFER TO THE DISCHARGE MEDICATION LIST. Insulin Orders?: No - Medications New Prescriptions: Aspirin [Aspirin EC] 81 mg PO DAILY #30 tablet. Atorvastatin [Lipitor] 10 mg PO QPM #30 tablet Ferrous Gluconate 240 mg PO 1200 #30 tablet Furosemide [Lasix] 40 mg PO DAILY #30 tablet Ipratropium/Albuterol [Duoneb] 3 ml INH QID #120 neb Methylprednisolone [Medrol Dose Pack] 1 each PO .PACKAGEINSTRUCTIONS 6 Days #1 each Metoprolol Succinate [Toprol Xl] 25 mg PO DAILY #30 tab.er.24h Oxybutynin [Ditropan] 5 mg PO DAILY #30 tablet Spironolactone [Aldactone] 25 mg PO 0800 #30 tablet - Diet Type: Diabetic diet Texture: Regular Liquids: Thin May have monthly special meal: Yes - Therapies | Activity Therapy: Evaluation | Treat if indicated: PT, OT Rehabilitation Potential: Maximize functional status Activity: Activity as Tolerated Weight Bearing: Full Weight Assistance Devices: Walker"
[2019-02-24 11:09] VITALS: BP 104/60
[2019-02-24] MEDS: FERROUS GLUCONATE 324 MG TABLET PO SCH (12:11)
--- NOTE | 2019-02-28 17:33 | DISCHARGE SUMMARY ---
Physician: Francisca Madsen MD DATE OF ADMISSION: 02/20/2019 DATE OF DISCHARGE: 02/24/2019 HISTORY OF PRESENT ILLNESS: This is an 83-year-old white male with a history of diabetes, stroke with residual poor memory, sleep apnea, who uses a CPAP device, history of hypertension, Parkinson's disease, COPD, and aortic stenosis. 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 The patient presented with sudden, severe orthopnea overnight, and an ambulance was called. He received a nebulizer en route and then more nebulizers and IV diuretics were started in the emergency room, and he needed a BiPAP for adequate oxygenation. After several hours on the BiPAP in the ER, this was transitioned to supplemental oxygen per nasal cannula. He denied any chest pain, leg edema, denied noncompliance with medications. He was admitted for management of pulmonary edema found on chest x-ray. The patient has limited-treatment on his POLST as well as a DO NOT INTUBATE request in the record HOSPITAL COURSE AND DISCHARGE DIAGNOSES 1. Flash pulmonary edema. His admitting chest x-ray showed fluid overload with CHF, and his labs showed a BNP of 784, which worsened to 1388 and then 1502 during this hospitalization. Troponins were elevated at 0.05, then 0.15, and peaked at 0.19 consistent with an OH. His EKG showed a new left bundle branch block. His Echo showed global hypokinesis with an EF of 40% and critical aortic stenosis. The patient was started on IV diuretics and had rapid improvement in his orthopnea. He was then put on new oral loop diuretics and Spironolactone. The day before discharge, he underwent an oximetry walk test, which showed that oxygen saturation was 91% at rest on room air, then he desaturated down to 82% as he arose from bed and with exertion. He was, therefore, put on oxygen 3 liters by nasal cannula, which improved his O2 saturation to 92%. I am ordering new supplemental oxygen at 3L per n.c. to use with any exertion, including starting to get out of bed. 2. Acute myocardial infarction. The patient had a new left bundle branch block at presentation and troponin values that chavo and peaked at 0.19. His Echo did show a mild cardiomyopathy with ejection fraction of 40%. His Amlodipine was, therefore, stopped, new Metoprolol was started along with the Lasix, Spironolactone, Lipitor, and daily aspirin was added to his prehospitalization management of Plavix. The patient was not a candidate for a coronary angiography because of his requests for limited intervention but he could attend outpatient [facility]F Education in [facility] (which was ordered), after improvement with Home Health physical therapy. 3. Acute systolic heart failure, [place] Heart Association class 3. As in #1 and #2 above. 4. Aortic stenosis, severe. The Echo with Doppler exam showed LVEF of 40%, severely calcified aortic valve with a calculated aortic valve area of 0.8 cm2, indicating severe or critical aortic stenosis. He is not a candidate for catheterization or intervention, for the reasons described above. His physical therapy rehab will be limited by this and his COPD as well. 5. Chronic obstructive pulmonary disease, with exacerbation. The admitting symptom was felt to be from his cardiac condition, not from a COPD exacerbation; however, on 02/23/2019, he was felt to be more short of breath, despite a chest x-ray that day showing improvement in pulmonary vascular congestion. He was, therefore, felt to have a COPD exacerbation, was started on a new Medrol Dosepak, DuoNeb nebulizer, and was discharged home with these. His prehospitalization COPD medications were continued. 6. Diabetes, type 2. The patient was on a carb-controlled diet and sliding scale insulin coverage p.r.n. but had been only on oral agents at home. There was information from his daughter (a Nurse Practitioner) that he only had borderline diabetes; he had an A1c of 6.4 on his oral agent and, therefore, the Metformin was continued and his sliding scale insulin coverage was not continued at the time of discharge. 7. History of stroke with residual deficit (poor memory). The patient had good gait and no complaints of muscle weakness or numbness, but had obvious poor short-term memory noted while here. 8. Anemia, iron deficiency. The patient's admission CBC showed a hemoglobin of 11.7; this dropped to 10.1 despite diuresis. He, therefore, underwent lab tests that showed adequate B12 and folate levels but low serum iron stores and was started on ferrous gluconate replacement and discharged on this. 9. Sleep apnea, on CPAP. He was continued on his home device while here. The night before discharge, he also underwent a sleeping, overnight oximetry study, and this showed no episodes of desaturation below 88%, indicating no need for nocturnal oxygen. 10. History of hypertension. His medications had to be changed with discontinuation of Amlodipine as the beta denisa and diuretics were initiated. On his new medications, his blood pressure was under good control. 11. History of Parkinson's disease. The patient was on good management with no significant Parkinson's symptoms while here. LABS AND IMAGING: Reviewed and summarized above. ALLERGIES: NONE. MEDICATIONS AT DISCHARGE 1. Buspirone 10 mg p.o. b.i.d. 2. Carbidopa/levodopa 3 tablets in the morning, 1 tablet at dinnertime, and 1 tablet at bedtime. 3. Citalopram 40 mg daily. 4. Plavix 75 mg daily. 5. Baby aspirin 1 tablet daily. 6. Metformin 1000 mg b.i.d. 7. Asmanex inhaler b.i.d. 8. Olodaterol Respimat inhaler b.i.d. 9. Zantac 150 mg daily. 10. Lipitor 10 mg every night. 11. Ferrous gluconate 240 mg daily. 12. Lasix 40 mg daily. 13. DuoNeb inhaler q.i.d. 14. Medrol Dosepak for 5 days. 15. Toprol-XL 25 mg daily. 16. Spironolactone 25 mg daily. 17. Ditropan 5 mg daily. PHYSICAL EXAMINATION AT DISCHARGE: Stable. VITAL SIGNS: Blood pressure 104/60, heart rate 60 in regular rhythm, afebrile, oxygen saturation 96% with nasal cannula at 3L of supplemental oxygen. HEENT: Showed no abnormalities. NECK: Without JVD or carotid bruits. CHEST: Clear. Rare wheezes at bases. HEART: Distant heart sounds, 1-2/6 systolic murmur at the aortic area. There is no RV heave or gallop heard. ABDOMEN: Soft, obese, nontender. No organomegaly or fluid wave. EXTREMITIES: No clubbing, cyanosis, or edema. NEUROLOGIC: Grossly intact, except poor memory. FOLLOWUP: The patient was recommended to have followup with his PCP after discharge. He is being discharged to [facility], with Home Health services, specifically OT and PT, to be started there. CODE STATUS: DNR. Time required to complete this entire discharge, chart review, dictation, discussion with the patient, and daughter, and orders to the adult living facility: 60 minutes. cc: Natanael Tirado MD TD: 02/28/2019 16:13 MTDD
== END 2019-02-24 12:30 | disposition home health service (06) | DRG 280 ==
LOC: EDUNIT# → ED 05:56 → MS2 11:32
PROVIDERS: ADMIT Internal Medicine; ATTEND Internal Medicine
DX: J44.9 Chronic obstructive pulmonary disease, unspecified (principal); I21.9 Acute myocardial infarction, unspecified; I50.9 Heart failure, unspecified; I50.21 Acute systolic (congestive) heart failure; G91.2 (Idiopathic) normal pressure hydrocephalus; G47.30 Sleep apnea, unspecified; I49.9 Cardiac arrhythmia, unspecified; J43.9 Emphysema, unspecified; E78.00 Pure hypercholesterolemia, unspecified; K21.9 Gastro-esophageal reflux disease without esophagitis; R35.0 Frequency of micturition; M19.90 Unspecified osteoarthritis, unspecified site; H54.7 Unspecified visual loss; I11.0 Hypertensive heart disease with heart failure; I35.0 Nonrheumatic aortic (valve) stenosis; I44.7 Left bundle-branch block, unspecified; Z96.649 Presence of unspecified artificial hip joint; R00.0 Tachycardia, unspecified; E11.9 Type 2 diabetes mellitus without complications; I69.911 Memory deficit following unspecified cerebrovascular disease; G47.33 Obstructive sleep apnea (adult) (pediatric); G20 Parkinson's disease; D50.9 Iron deficiency anemia, unspecified; Z66 Do not resuscitate; Z96.89 Presence of other specified functional implants; Z79.51 Long term (current) use of inhaled steroids; Z86.79 Personal history of other diseases of the circulatory system; Z79.82 Long term (current) use of aspirin; Z79.84 Long term (current) use of oral hypoglycemic drugs; Z79.02 Long term (current) use of antithrombotics/antiplatelets
CPT/HCPCS: 36415; 36600; 71045; 80048; 80053; 80061; 81001; 82607; 82746; 82803; 83036; 83540; 83690; 83735; 83880; 84466; 84484; 85025; 85610; 85730; 93005; 93306; 94640; 94660; 94761; 97116; 97161; 97530; 99284; A9270; J1650; J7626; J8499; 81003; 82272; 83721; 87086

== ENCOUNTER 2019-04-17 20:01 | Outpatient (CLI) | payer MEDICARE | END 2019-04-17 20:02 | disposition EMS.NT | LOC: EMS 20:01 | PROVIDERS: ATTEND Surgery | DX: S00.81XA Abrasion of other part of head, initial encounter (principal); W18.30XA Fall on same level, unspecified, initial encounter; Y92.003 Bedroom of unspecified non-institutional (private) residence as the place of occurrence of the external cause; Z79.02 Long term (current) use of antithrombotics/antiplatelets ==

== ENCOUNTER 2019-08-20 09:37 | Outpatient (CLI) | payer MEDICARE | END 2019-08-20 09:38 | disposition EMS.NT | LOC: EMS 09:37 | PROVIDERS: ATTEND Surgery | DX: M25.552 Pain in left hip (principal); M25.532 Pain in left wrist; W01.0XXA Fall on same level from slipping, tripping and stumbling without subsequent striking against object, initial encounter; Y92.009 Unspecified place in unspecified non-institutional (private) residence as the place of occurrence of the external cause ==

== ENCOUNTER 2019-08-26 00:53 | Outpatient (CLI) | payer MEDICARE | END 2019-08-26 00:54 | disposition E | LOC: EMS 00:53 | PROVIDERS: ATTEND Surgery ==